=== PATIENT | female | born 1960 | race Caucasian/White ===

== ENCOUNTER 2016-02-22 09:18 | Inpatient (IN) | payer OTHER ==
--- NOTE | 2016-02-22 09:25 | ED ---
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 She did feel somewhat nauseated and sweaty and hot. EMS was called he did render treatment included oxygen and nitroglycerin 3 the pain currently is 0/10. Initial EKG done by EMS to show some evidence of hyperacute T waves on the first EKG these appear to be normalized on the repeat EKG. Given the patient is currently pain-free she denies any shortness of breath cough fevers chills also though she states over last several days she has had some intermittent episodes of chest discomfort which seemed to get better after belching. MD Complaint: chest pain - Related Data Home Medications Medication Instructions Recorded Confirmed No Known Home Medications [No 02/22/16 02/22/16 Known Home Medications] Allergies Allergy/AdvReac Type Severity Reaction Status Date / Time ampicillin Allergy Unknown Verified 02/22/16 09:48 Childhood Review of Systems ROS Statement: Those systems with pertinent positive or pertinent negative responses have been documented in the HPI. ROS Other: All systems not noted in ROS Statement are negative. EKG Findings - EKG Results: EKG: interpreted by MORTEZA, sinus rhythm (Sinus rhythm with rate of 53 VA interval 140 QRS duration 84 daily since QTC of 456/427 possible left atrial enlargement no acute ST-T wave changes seen at this time.) General Exam - General Exam Comments Initial Comments: This is a well-developed well-nourished awake alert oriented 3 female General appearance: alert, anxious Head exam: Present: atraumatic, normocephalic, normal inspection Eye exam: Present: normal appearance, PERRL, EOMI. Absent: scleral icterus, conjunctival injection, periorbital swelling ENT exam: Present: normal exam, mucous membranes moist Neck exam: Present: normal inspection. Absent: tenderness, meningismus, lymphadenopathy Respiratory exam: Present: normal lung sounds bilaterally. Absent: respiratory distress, wheezes, rales, rhonchi, stridor Cardiovascular Exam: Present: regular rate, normal rhythm, normal heart sounds. Absent: systolic murmur, diastolic murmur, rubs, gallop, clicks GI/Abdominal exam: Present: soft, normal bowel sounds. Absent: distended, tenderness, guarding, rebound, rigid Extremities exam: Present: normal inspection, full ROM, normal capillary refill. Absent: tenderness, pedal edema, joint swelling, calf tenderness Back exam: Present: normal inspection Neurological exam: Present: alert, oriented X3, CN II-XII intact Psychiatric exam: Present: normal affect, normal mood Skin exam: Present: warm, dry, intact, normal color. Absent: rash Course Vital Signs 02/22/16 09:22 Temperature 97.4 F L Pulse Rate 69 Respiratory 20 Rate Blood Pressure 132/80 O2 Sat by Pulse 99 Oximetry - Reevaluation(s) Reevaluation #1: 02/22/16 11:00 Reevaluation patient reveals no further chest pain Reevaluation #2: 02/22/16 11:00 Patient had elevation of her troponin repeat EKG was done which showed a normal sinus rhythm a rate of 58 VA interval 146 QRS duration 74 daily since QTC of 446 /437 possible left atrial enlargement no acute ST-T wave changes. Reevaluation #3: 02/22/16 11:03 Patient is elevated troponin was noted I did discuss the case with Dr. Leger. Patient currently is pain-free repeat EKG shows no acute changes the patient will be admitted and Dr. Leger will see her after admission. Chest Pain MDM - MDM I did a long discussion with the patient and her regarding the findings. Patient be admitted for evaluation of new onset chest pain with elevated troponin. She remains pain-free at this time. Critical Care Time Critical Care Time: Yes Critical Care Time: 39 minutes of critical care time which includes initial monitoring of the EMS run as well as discussion with paramedics. History physical and evaluation of labs and x-rays. Reevaluation the patient to responsive therapy and further changes. Discussion with the admitting physician and consult at. Documentation above and initial admission orders. Disposition Clinical Impression: Non-ST elevation myocardial infarction (NSTEMI), Unstable angina pectoris, Chest pain, Smoking Disposition: ADMITTED IP TO THIS HOSP Condition: Stable
[2016-02-22 09:44] LABS: Basophils % (A) 1 %; CH 31.1; CHCM 33.4; Eosinophils # (A) 0.1 k/uL (0-0.7); Eosinophils % (A) 2 %; HCT 39.7 % (34.0-46.0); HDW 2.27; HGB 13.4 gm/dL (11.4-16.0); Luc # (Auto) 0.16; Luc % (Auto) 3; Lymphocytes # (A) 1.6 k/uL (1.0-4.8); Lymphocytes % (A) 36 %; MCH 31.6 pg (25.0-35.0); MCHC 33.7 g/dL (31.0-37.0); MCV 93.7 fL (80.0-100.0); Mean Platelet Volume 7.2; Monocytes # (A) 0.2 k/uL (0-1.0); Monocytes % (A) 4 %; Neutrophils # (A) 2.5 k/uL (1.3-7.7); Neutrophils % (A) 55 %; RBC 4.24 m/uL (3.80-5.40); RDW 13.5 % (11.5-15.5); WBC 4.6 k/uL (3.8-10.6); WBC (Perox) 4.63
--- NOTE | 2016-02-22 09:46 | XR ---
EXAMINATION TYPE: XR chest 2V DATE OF EXAM: 02/22/2016 9:42 AM COMPARISON: 01/16/2012 HISTORY: Chest pain FINDINGS: The lungs are clear and there is no pneumothorax, pleural effusion, or focal pneumonia. Hyperinflat ion suggests COPD. Degenerative change of the spine. IMPRESSION: 1. No acute process.
[2016-02-22 09:54] LABS: ALT 24 U/L (9-52); AST 24 U/L (14-36); Alkaline Phosphatase 64 U/L (38-126); Amylase 88 U/L (30-110); Anion Gap 10 mmol/L; Blood Urea Nitrogen 10 mg/dL (7-17); Carbon Dioxide 27 mmol/L (22-30); Chloride 103 mmol/L (98-107); Glucose 120 mg/dL (74-99); Magnesium 1.7 mg/dL (1.6-2.3); Non-African American GFR(MDRD) >60 (>60 ml/min/1.73 sqM); Potassium 4.4 mmol/L (3.5-5.1); Sodium 140 mmol/L (137-145); Total Bilirubin 0.2 mg/dL (0.2-1.3); Total Protein 6.6 g/dL (6.3-8.2)
[2016-02-22 09:59] LABS: Partial Thromboplastin Time 22.1 sec (22.0-30.0)
[2016-02-22 10:15] LABS: Troponin I 0.155 ng/mL (0.000-0.034)
[2016-02-22] MEDS ORDERED: HEPARIN SODIUM,PORCINE 5,000 UNIT/ML 1 ML VIAL IV ONE (10:18)
[2016-02-22] MEDS: HEPARIN SODIUM,PORCINE/D5W PMX 25,000 UNIT in DEXTROSE/WATER 1 500ML.BAG IV SCH (10:44)
[2016-02-22] MEDS ORDERED: NITROGLYCERIN SL TABS 0.4 MG TAB SUBLINGUAL PRN ×3 (11:06→15:46)
[2016-02-22] MEDS ORDERED: NICOTINE 14MG/24HR PATCH TRANSDERM STA (11:08)
[2016-02-22] MEDS ORDERED: BIVALIRUDIN BOLUS 250 MG/50 ML IV ONE (13:21)
[2016-02-22] MEDS ORDERED: BIVALIRUDIN 250 MG VIAL IV ONE (13:21)
[2016-02-22] MEDS ORDERED: ALPRAZolam 0.5 MG TAB PO PRN (13:24)
[2016-02-22] MEDS ORDERED: ALPRAZolam 0.25 MG TAB PO PRN (13:24)
[2016-02-22] MEDS ORDERED: ATORVASTATIN 80 MG TAB PO STA (13:24)
[2016-02-22] MEDS ORDERED: SODIUM CHLORIDE 0.9% 1,000 ML in EMPTY BAG 1 BAG IV ONE (13:24)
[2016-02-22] MEDS ORDERED: ASPIRIN 325 MG TAB PO STA (13:24)
[2016-02-22] MEDS ORDERED: fentaNYL (PF) 50 MCG/ML 2 ML AMP ONE (14:46)
[2016-02-22] MEDS ORDERED: HEPARIN SODIUM 1,000 UNIT/ML VIAL ONE (14:46)
[2016-02-22] MEDS ORDERED: LIDOCAINE 2% INJ 20 MG/ML (20 ML MDV) ONE (14:46)
[2016-02-22] MEDS ORDERED: IV FLUID CONTINUATION 1,000 ML IV ONE (14:46)
[2016-02-22] MEDS ORDERED: SODIUM CHLORIDE 0.9% (PF) 10 ML VIAL ONE (14:47)
[2016-02-22] MEDS ORDERED: VERAPAMIL 2.5 MG/ML 2 ML AMP ONE (14:47)
[2016-02-22] MEDS ORDERED: fentaNYL (PF) 50 MCG/ML 2 ML AMP IV ONE (15:06)
[2016-02-22] MEDS ORDERED: LIDOCAINE 2% INJ 20 MG/ML SQ ONE (15:09)
[2016-02-22] MEDS ORDERED: VERAPAMIL SYRINGE (5 MG/10 ML) INTRAARTER ONE (15:10)
[2016-02-22] MEDS ORDERED: BIVALIRUDIN 250 MG in SODIUM CHLORIDE 0.9% 50 ML IV ONE (15:22)
[2016-02-22] MEDS ORDERED: CLOPIDOGREL 75 MG TAB ONE (15:24)
[2016-02-22] MEDS ORDERED: CLOPIDOGREL 75 MG TAB PO ONE (15:27)
[2016-02-22] MEDS ORDERED: IOHEXOL 350 MG/ML 100 ML BOTTLE INJ ONE (15:41)
[2016-02-22] MEDS ORDERED: MAG HYDROX/AL HYDROX/SIMETH 30 ML CUP PO PRN (15:46)
[2016-02-22] MEDS ORDERED: RX INFO: IV CONTRAST WAS GIVEN 1 EACH MISC MISCELLANE PRN (15:46)
[2016-02-22] MEDS ORDERED: ZOLPIDEM 5 MG TAB PO PRN (15:46)
[2016-02-22] MEDS ORDERED: SODIUM CHLORIDE 0.9% 1,000 ML IV SCH (16:00)
[2016-02-22] MEDS: SODIUM CHLORIDE 0.9% 1,000 ML IV SCH (16:34)
[2016-02-22] MEDS: NITROGLYCERIN OINT 1 INCH/GM PACKET TOPICAL SCH ×3 (16:34→22:42)
[2016-02-22 17:24] LABS: Creatine Kinase MB 4.2 ng/mL (0.0-2.4); Troponin I 1.38 ng/mL (0.000-0.034)
[2016-02-22] MEDS: ACETAMINOPHEN TAB 325 MG TAB PO PRN (19:48)
[2016-02-22] MEDS: METOPROLOL TARTRATE 25 MG TAB PO SCH (19:49)
[2016-02-22 20:16] LABS: Cholesterol 170 mg/dL (<200); HDL Cholesterol 73 mg/dL (40-60); Triglycerides 164 mg/dL (<150)
[2016-02-22 22:24] LABS: Creatine Kinase MB 2.8 ng/mL (0.0-2.4); Troponin I 0.816 ng/mL (0.000-0.034)
[2016-02-22] MEDS: ATORVASTATIN 80 MG TAB PO SCH (22:42)
--- NOTE | 2016-02-22 22:49 | CONS ---
DATE OF CONSULTATION: 02/22/2016 Mrs. Schwartz is a 55-year-old female who does not see a family physician on a regular basis, with no prior cardiac history, who today had significant chest discomfort at rest. Came into the emergency room. Her EKG by the EMS showed some ST elevation in the lateral precordial leads. By the time she came into the emergency room her repeat EKG revealed resolution of those changes. She is pain free at the time of my evaluation. The patient is quite active physically. Denies any prior cardiac history. Denies any history of exertional chest pain. She has no dizziness. No palpitations. She denies any PND, orthopnea, or peripheral edema. She has not had any cardiac work-up and has not seen a physician. She takes no medications at home. Coronary risk factors are remarkable for chronic tobacco use, about a pack a day. She is nondiabetic. No hypertension and no documented hyperlipidemia. REVIEW OF SYSTEMS: RESPIRATORY: She denies any wheezing. No cough. No history of obstructive lung disease. GI: SYSTEM: No recent GI bleeding. No peptic ulcer disease. SYSTEM: No dysuria or hematuria. NERVOUS SYSTEM: No stroke or seizure. PHYSICAL EXAMINATION: She is a 55-year-old female, alert, oriented, in no apparent distress. Blood pressure 126/70 with a heart in the 50s. HEAD: Normocephalic. EYES: Sclerae anicteric. NECK: Good upstroke. No bruit. No jugular venous distention. LUNGS: Clear to auscultation. HEART: Regular rate and rhythm. S1, S2, no S3, no rub. ABDOMEN: Soft, nontender, positive bowel sounds. No organomegaly. EXTREMITIES: No edema. Intact distal pulses. LABORATORY DATA: BUN and creatinine 10 and 0.8. Potassium 4.4, troponin of 0.155. Hemoglobin of 13.4. Her EKG done in the emergency room revealed sinus mechanism, normal axis and intervals with minor nonspecific ST-T wave changes. There is one EKG by the EMS that showed ST segment elevation in the lateral precordial leads. Her chest x-ray shows no infiltrate. IMPRESSION: 1. Evidence of acute coronary syndrome. Her EKG at this time is stable, but she troponin elevation. 2. Chronic tobacco use. RECOMMENDATIONS: I recommend proceeding with coronary angiography to assess her status and guide her treatment. The rationale behind the procedure as well as risks and complications were discussed with the patient and her , they are in full understanding and agreement. Depending on the results of testing, further recommendations will be made. Thank you for this consult. We will follow with you.
[2016-02-23 01:27] LABS: Appearance,Urine Clear (Clear); Bilirubin,Urine Negative (Negative); Glucose,Urine (UA) Negative (Negative); Ketones,Urine Negative (Negative); Leukocyte Esterase,Urine Negative (Negative); Nitrite,Urine Negative (Negative); Protein,Urine Negative (Negative); UA Billing (MACRO vs. MICRO) CHEM; Urobilinogen,Urine <2.0 mg/dL (<2.0)
[2016-02-23] MEDS: ACETAMINOPHEN TAB 325 MG TAB PO PRN ×3 (03:13→21:45)
[2016-02-23] MEDS: NITROGLYCERIN OINT 1 INCH/GM PACKET TOPICAL SCH ×2 (06:45→11:11)
[2016-02-23 07:48] LABS: Anion Gap 9 mmol/L; Blood Urea Nitrogen 5 mg/dL (7-17); Calcium 8.4 mg/dL (8.4-10.2); Carbon Dioxide 23 mmol/L (22-30); Chloride 110 mmol/L (98-107); Cholesterol 152 mg/dL (<200); Glucose 89 mg/dL (74-99); HDL Cholesterol 63 mg/dL (40-60); Non-African American GFR(MDRD) >60 (>60 ml/min/1.73 sqM); Potassium 4.3 mmol/L (3.5-5.1); Sodium 142 mmol/L (137-145); Triglycerides 131 mg/dL (<150)
[2016-02-23] MEDS ORDERED: ASPIRIN 325 MG TAB PO SCH ×2 (09:00)
[2016-02-23] MEDS: LISINOPRIL 5 MG TAB PO SCH (09:17)
[2016-02-23] MEDS: METOPROLOL TARTRATE 25 MG TAB PO SCH ×2 (09:17→21:28)
[2016-02-23 09:24] VITALS: RESP 18
[2016-02-23] MEDS: HEPARIN SODIUM,PORCINE/D5W PMX 25,000 UNIT in DEXTROSE/WATER 1 500ML.BAG IV SCH (09:59)
[2016-02-23] MEDS: SODIUM CHLORIDE 0.9% 1,000 ML IV SCH (10:11)
--- NOTE | 2016-02-23 10:27 | CC ---
DATE OF SERVICE: Mrs. Schwartz is a 55-year-old female with known history of chronic tobacco use. No prior history of coronary artery disease, who presented to the emergency room with symptoms of chest discomfort and in the EMS, she had a transient ST segment elevation in the anterolateral leads. In view of that, recommendation made regarding cardiac catheterization. The procedure as well as risks and complications were discussed with the patient, who is in full understanding and agreement. PROCEDURE: Patient was brought to the Product Inspection Coordinator in a fasting semi-sedated state after receiving fentanyl and Benadryl. She was draped and prepped in conventional fashion. Using Xylocaine anesthesia and Seldinger technique, a 6 Thai sheath was introduced in the right radial artery. Selective right and left coronary angiography were performed using 5 Thai 3-1/2 Bend right Mony catheter and multiple views of the coronary arteries coronary arteries including hemiaxial view were obtained. Following that, a 5 Thai tight pigtail catheter was introduced into the left ventricular and a 30 degree DINH view of the left ventricle was obtained. Following that, the catheter was removed. Images were reviewed. FINDINGS: LEFT MAIN: This is a large-size vessel bifurcating into left circumflex, left anterior descending artery. Left main coronary has no evidence of high-grade stenosis. LEFT ANTERIOR DESCENDING ARTERY: This is a large-size vessel reaching toward the apex with a wraparound apex segment, giving rise to a moderately-sized diagonal branch in the mid segment. The left anterior descending artery in the midsegment after the takeoff of the first septal clinical trial coordinator has an eccentric 80% hazy plaque. The rest of the vessel has no high-grade stenosis. LEFT CIRCUMFLEX: This is a nondominant vessel, giving rise to 2 obtuse marginal branches. The left circumflex as well as its branches has no evidence of obstructive coronary artery disease. RIGHT CORONARY ARTERY: This is a dominant, moderately-sized vessel, bifurcating distally into PDA ( ) segmented branches. The right coronary artery, as well as its branches have no evidence of obstructive coronary artery disease. LEFT VENTRICULOGRAM: Left ventriculogram was performed in 30 degree DINH view and revealed a anteroapical hypokinesis. Ejection fraction is 45%. There was no significant mitral regurgitation. HEMODYNAMICS: There was no gradient across the aortic valve. The left ventricular end-diastolic pressure was smoke. CONCLUSION: 1. Significant stenosis involving the mid left anterior descending artery. There appears to be a ruptured plaque. 2. Mildly impaired left ventricular systolic function. RECOMMENDATION: In view of the findings in the anatomy, I have recommended proceeding with angioplasty and stenting of the LAD. The procedure as well as risks and complications were discussed with the patient who is in full understanding and agreement.
--- NOTE | 2016-02-23 10:27 | ECHOF ---
Referral Reason:Chest pain with elevated troponin MEASUREMENTS -------- HEIGHT: 152.4 cm WEIGHT: 49.0 kg BP: 86/53 RVIDd: 2.4 cm (< 3.3) IVSd: 0.9 cm (0.6 - 1.1) LVIDd: 3.2 cm (3.9 - 5.3) LVPWd: 0.8 cm (0.6 - 1.1) IVSs: 1.3 cm LVIDs: 2.1 cm LVPWs: 1.4 cm LA Diam: 2.6 cm (2.7 - 3.8) Ao Diam: 2.4 cm (2.0 - 3.7) AV Cusp: 1.5 cm (1.5 - 2.6) LA Diam: 2.5 cm (2.7 - 3.8) MV EXCURSION: 10.434 mm (> 18.000) MV EF SLOPE: 51 mm/s (70 - 150) EPSS: 0.4 cm MV E Jh: 1.08 m/s MV DecT: 188 ms MV A Jh: 0.49 m/s MV E/A Ratio: 2.20 RAP: 5.00 mmHg RVSP: 26.09 mmHg FINDINGS -------- Sinus rhythm. This was a technically good study. Left ventricular wall thickness is normal. Overall left ventricular systolic function is normal with, an EF between 55 - 60 %. The right ventricle is normal in size. The left atrial size is normal. The right atrium is normal in size. Aortic valve is trileaflet and is mildly thickened. The mitral valve leaflets are mildly thickened. Mild mitral annular calcification present. Mild tricuspid regurgitation present. Right ventricular systolic pressure is normal at < 35 mmHg. Pulmonic valve appears structurally normal. The aortic root size is normal. Normal inferior vena cava with normal inspiratory collapse consistent with estimated right atrial pressure of 5 mmHg. The pericardium is normal. CONCLUSIONS -------- 1. Sinus rhythm. 2. Mild mitral annular calcification present. 3. Mild tricuspid regurgitation present. 4. Right ventricular systolic pressure is normal at < 35 mmHg. 5. Pulmonic valve appears structurally normal. 6. The aortic root size is normal. 7. The pericardium is normal. 8. This was a technically good study. 9. Left ventricular wall thickness is normal. 10. Overall left ventricular systolic function is normal with, an EF between 55 - 60 %. 11. The right ventricle is normal in size. 12. The left atrial size is normal. 13. The right atrium is normal in size. 14. Aortic valve is trileaflet and is mildly thickened. 15. The mitral valve leaflets are mildly thickened. GLUE MOUNTER OPERATOR: Montse Vital RDCS
--- NOTE | 2016-02-23 10:36 | PTCA ---
DATE OF SERVICE: Mrs. Schwartz is a 55-year-old female who presented with evidence of acute coronary syndrome, underwent cardiac catheterization, was found to have critical stenosis involving the mid LAD. In view of that, recommendation was made regarding angioplasty and stenting. The procedure as well as the risks and complications were discussed with the patient who is in full understanding and agreement. PROCEDURE: Using a 6 Chinese 3-1/2 Bend left guiding catheter, images of the left coronary artery were performed. Following that 0.014 balanced medium weight J-wire was advanced across the lesion, positioned distally then a 2.5 x 15 mm Xience Alpine stent was deployed, postdilated at 14 atmospheres. After the last inflation, after appropriate wait, the balloon and the guidewire withdrawn back in the guiding catheter. Images were obtained and repeated. Those images reveal stable successful stenting. At that point, the guiding catheter, the balloon and the guidewire were removed. The sheath was removed. Hemostasis was obtained with deployment of a TR band. There were no immediate complications. Patient is returned to her room in stable condition. Of note, the patient had received Angiomax per protocol as well as oral loading dose of clopidogrel. She has no chest discomfort or significant EKG changes with the inflation. RESULT: Successful stenting of the mid left anterior descending with reduction in stenosis from 80% to 0%. RECOMMENDATION: Patient will be continued on aspirin, Plavix, beta farideh, RUSTY inhibitor and statin. The importance of dual antiplatelet treatment were discussed with the patient and her family and they are in full understanding and agreement.
--- NOTE | 2016-02-23 11:04 | HP ---
DATE OF ADMISSION: 02/22/2016 CHIEF COMPLAINT: Chest pain. HISTORY OF PRESENT ILLNESS: This 55-year-old woman with a past history of multiple medical problems including anxiety, depression, history of nicotine dependence, history of THC, not being followed by any primary care physician in the outpatient setting, was complaining of chest pain. 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 The patient had sudden onset of severe crushing pain which was 20 out of 10 in intensity. The patient was nauseated and felt sweaty and hot. The patient took some . The EMS was called. EMS gave oxygen and nitroglycerin. The pain improved. Some T-wave inversions noted in the EKG. Patient admitted for further evaluation and treatment. Troponins elevated to 1.38 indicating acute non-ST segment elevation myocardial infarction. Cardiology performed cardiac catheterization and as well as stenting of the LAD and the patient being closely monitored. There is no history of fever, rigors or chills. No history of headache, loss of consciousness or seizures. The patient was also complaining of severe abdominal pain which did improve with passage of gas. Past medical history of anxiety, depression. History of nicotine dependence. section. Medications prior to admission include: None. ALLERGIES: AMPICILLIN. FAMILY HISTORY: History of CVA, TIA, cardiac disease in the family. SOCIAL HISTORY: Continues to smoke on a daily basis. No history of alcohol intake. REVIEW OF SYSTEMS: ENT: No diminished hearing. No diminished vision. CARDIOVASCULAR: As mentioned earlier. RESPIRATORY: As mentioned earlier. GI: No nausea. : No dysuria. Nervous system: No numbness, weakness. Allergy/immunology: No asthma or hayfever. MUSCULOSKELETAL: As mentioned earlier. HEMATOLOGY/ONCOLOGY: No history of anemia. ENDOCRINE: No history of diabetes, or hypothyroidism. CONSTITUTIONAL: As mentioned earlier. DERMATOLOGY: Negative. RHEUMATOLOGY: Negative. PSYCHIATRY: As mentioned earlier. PHYSICAL EXAMINATION: The patient is alert and oriented times three. Pulse 56, blood pressure 111/51, respiratory rate 16, temperature normal. Pulse ox 98% on room air. HEENT: Conjunctivae normal. NECK: No jugular venous distention. CARDIOVASCULAR: S1, S2 muffled. RESPIRATORY: Breath sounds diminished in the bases. A few scattered rhonchi and no crackles. ABDOMEN: Soft, nontender. No mass palpable. LEGS: No edema. No swelling. CENTRAL NERVOUS SYSTEM: Higher functions as mentioned earlier. Moves all four limbs. No focal motor or sensory deficits. LYMPHATICS: No lymph nodes palpable in the neck, axillae or groin. SKIN: No ulcer, rash or bleeding. LABS: CBC within normal limits. Troponin 0.115 and 1.380. ASSESSMENT: 1. Acute non- ST segment elevation segment elevation myocardial infarction with chest pain, status post cardiac catheterization and left anterior descending coronary artery stenting. 2. History of possible irritable bowel syndrome. 3. Increased triglycerides. 4. Increased random blood sugar. 5. History of nicotine dependence. 6. History of THC. 7. Anxiety and depression. RECOMMENDATIONS AND DISCUSSION: In this 55-year-old woman who presented with multiple complex medical issues, we will monitor the patient closely, continue the current medications, continue symptomatic treatment. Otherwise, at this time, I recommend to continue with antiplatelet agents and beta blockers and check the serum lipids. Guarded prognosis because of multiple complex medical problems. Also recommend the patient to follow up with primary physician closely in the outpatient setting. Further recommendations to follow. The patient understands and agrees. RUTH
[2016-02-23] MEDS: CLOPIDOGREL 75 MG TAB PO SCH (15:11)
--- NOTE | 2016-02-23 15:28 | P.PN ---
Subjective Principal diagnosis: Non-Q wave IA This is a 55-year-old female who presented to the hospital with a non-Q-wave myocardial infarction. She underwent went to cardiac catheterization with stent placement of the left anterior descending artery. She was seen and examined this morning, she's been up ambulating without any difficulty. Denies any further chest pain, breathing has been stable. Echocardiogram with Doppler study was performed which revealed an ejection fraction of 55-60%. She is currently on aspirin daily, Lipitor 80 mg daily, Plavix 75 mg daily, lisinopril 5 mg daily, metoprolol tartrate 25 mg one tablet by mouth twice a day, nicotine patch, and sublingual nitroglycerin. She's been instructed to be up ambulating today and we'll plan for discharge home in the morning if stable. Objective - Vital Signs Vital signs: Vital Signs Temp 97.1 F L 02/23/16 15:16 Pulse 55 L 02/23/16 15:16 Resp 18 02/23/16 15:16 BP 133/76 02/23/16 15:16 Pulse Ox 98 02/23/16 15:16 Intake & Output 02/22/16 02/23/16 02/23/16 18:59 06:59 18:59 Intake Total 306.7 800 300 Output Total 529 430 2431 Balance -293.3 -50 -700 Weight 49.4 kg Intake: IV 84.7 500 Sodium Chloride 0.9% 1, 500 000 ml @ 100 mls/hr IV . Q10H ROSS Rx#:[id number] Oral 222 300 300 Output: Urine 463 994 1125 Other: Voiding Method Bedpan Toilet Toilet # Voids 1 - Exam PHYSICAL EXAMINATION: HEENT: Head is atraumatic, normocephalic. Pupils equal, round. Neck is supple. There is no elevated jugular venous pressure. HEART EXAMINATION: Heart S1, S2 normal. No murmur or gallop heard. CHEST EXAMINATION: Lungs are clear to auscultation and precussion. No chest wall tenderness is noted on palpation or with deep breathing. ABDOMEN: Soft, nontender. Bowel sounds are heard. No organomegaly noted. EXTREMITIES: 2+ peripheral pulses with no evidence of peripheral edema and no calf tenderness noted. Right radial site clean and dry, good distal pulse. NEUROLOGIC patient is awake, alert and oriented -3. . - Labs CBC & Chem 7: 02/22/16 09:30 02/23/16 06:15 Labs: Abnormal Lab Results - Last 24 Hours (Table) 02/22/16 02/22/16 02/23/16 Range/Units 16:10 21:20 01:15 Chloride (98-107) mmol/L BUN (7-17) mg/dL Total Creatine Kinase 148 H (30-135) U/L CK-MB (CK-2) 4.2 H* 2.8 H* (0.0-2.4) ng/mL Troponin I 1.380 H* 0.816 H* (0.000-0.034) ng/mL HDL Cholesterol (40-60) mg/dL U Marijuana (THC) Screen Detected H (NotDetected) 02/23/16 Range/Units 06:15 Chloride 110 H (98-107) mmol/L BUN 5 L (7-17) mg/dL Total Creatine Kinase (30-135) U/L CK-MB (CK-2) (0.0-2.4) ng/mL Troponin I (0.000-0.034) ng/mL HDL Cholesterol 63 H (40-60) mg/dL U Marijuana (THC) Screen (NotDetected) Assessment and Plan (1) Presence of stent in LAD coronary artery Status: Acute (2) Non-ST elevation myocardial infarction (NSTEMI) Status: Acute (3) Smoking Status: Acute Plan: From cardiology's perspective, patient has been instructed to be up ambulating in the hallway today. We'll plan for possible discharge home in 24 hours if stable DNP note has been reviewed, I agree with a documented findings and plan of care. Patient was seen and examined.
[2016-02-23] MEDS: NICOTINE 21MG/24HR PATCH TRANSDERM SCH (18:42)
[2016-02-23] MEDS: ATORVASTATIN 80 MG TAB PO SCH (21:28)
--- NOTE | 2016-02-23 21:44 | PN ---
DATE OF SERVICE: 02/23/2016 This 55-year-old woman who was admitted with acute aya-FC-bqveuui-elevation myocardial infarction had cardiac catheterization and stenting of the LAD. No chest pain. No palpitation. No fever. Cardiology is following the patient closely. On exam, alert and oriented x3. Pulse 55, blood pressure 120/76, respiration 18, temperature 97.4, pulse ox 98% on room air. HEENT: Conjunctivae normal. NECK: No jugular venous distention. CARDIOVASCULAR SYSTEM: S1, S2 muffled. RESPIRATORY SYSTEM: Breath sounds diminished at the bases. No rhonchi. No crackles. ABDOMEN: Soft, non-tender. LEGS: No edema. No swelling. NERVOUS SYSTEM: No focal deficit. LABS: Sodium 142, potassium 4.3. UA normal. THC positive. HDL is 63. ASSESSMENT: 1. Acute qpi-OF-bhyknnb-elevation myocardial infarction with chest pain, status post cardiac catheterization and left anterior descending coronary artery stenting. 2. History of possible irritable bowel syndrome. 3. Increased triglycerides. 4. Increased random blood sugar. 5. History of nicotine dependence. 6. History of tetrahydrocannabinol. 7. Anxiety, depression not otherwise specified. RECOMMENDATIONS AND DISCUSSION: In this 55-year-old woman who presented with multiple complex medical issues, we will monitor the patient closely, continue the current medication, continue with the beta blockers, continue with the antiplatelet agents. Prognosis guarded because of multiple complex medical issues. Further recommendations to follow.
--- NOTE | 2016-02-24 08:20 | P.PN ---
Subjective Principal diagnosis: Non-Q wave HI This is a 55-year-old female who presented to the hospital with a non-Q-wave myocardial infarction. She underwent went to cardiac catheterization with stent placement of the left anterior descending artery. She was seen and examined this morning, she's been up ambulating without any difficulty. Denies any further chest pain, breathing has been stable. Echocardiogram with Doppler study was performed which revealed an ejection fraction of 55-60%. She is currently on aspirin daily, Lipitor 80 mg daily, Plavix 75 mg daily, lisinopril 5 mg daily, metoprolol tartrate 25 mg one tablet by mouth twice a day, nicotine patch, and sublingual nitroglycerin. Patient's heart rate has been consistently in the low 50s, through the night down into the 40s. We will decrease the dose of metoprolol tartrate 12.5 mg one tablet by mouth twice a day. She may be able to be discharged home today from cardiology's perspective , a follow-up appointment will be made in the office post discharge. Prescriptions have been provided for her medications. Objective - Vital Signs Vital signs: Vital Signs Temp 97.6 F 02/23/16 20:00 Pulse 45 L 02/24/16 04:00 Resp 18 02/24/16 04:00 BP 107/55 02/24/16 04:00 Pulse Ox 99 02/24/16 04:00 Intake & Output 02/23/16 02/24/16 02/24/16 18:59 06:59 18:59 Intake Total 840 1200 Output Total 1000 1300 Balance -160 -100 Weight 49.1 kg Intake: Oral 840 1200 Output: Urine 1000 1300 Other: Voiding Method Toilet # Voids 1 1 - Exam PHYSICAL EXAMINATION: HEENT: Head is atraumatic, normocephalic. Pupils equal, round. Neck is supple. There is no elevated jugular venous pressure. HEART EXAMINATION: Heart S1, S2 normal. No murmur or gallop heard. CHEST EXAMINATION: Lungs are clear to auscultation and precussion. No chest wall tenderness is noted on palpation or with deep breathing. ABDOMEN: Soft, nontender. Bowel sounds are heard. No organomegaly noted. EXTREMITIES: 2+ peripheral pulses with no evidence of peripheral edema and no calf tenderness noted. Right radial site clean and dry, good distal pulse. NEUROLOGIC patient is awake, alert and oriented -3. . - Labs CBC & Chem 7: 02/22/16 09:30 02/23/16 06:15 Assessment and Plan (1) Presence of stent in LAD coronary artery Status: Acute (2) Non-ST elevation myocardial infarction (NSTEMI) Status: Acute (3) Smoking Status: Acute Plan: From cardiology's perspective, we will decrease increase the dose of metoprolol tartrate 12-1/2 mg one tablet by mouth twice a day. Patient may be able to be discharged home today area a follow-up appointment will be made with Dr. Leger in the office in one week. Patient will be discharged home on aspirin 81 mg daily, Lipitor 80 mg daily, Plavix 75 mg daily, metoprolol tartrate 12-1/2 mg one tablet by mouth twice a day, nicotine patch daily, sublingual nitroglycerin as needed for chest pain. DNP note has been reviewed, I agree with a documented findings and plan of care. Patient was seen and examined.
[2016-02-24 08:35] VITALS: TEMP 97.5
[2016-02-24] MEDS ORDERED: METOPROLOL TARTRATE 12.5 MG TAB PO SCH (09:00)
[2016-02-24] MEDS ORDERED: ASPIRIN 81 MG CHEW PO SCH (09:00)
[2016-02-24] MEDS: CLOPIDOGREL 75 MG TAB PO SCH (09:01)
[2016-02-24] MEDS: LISINOPRIL 5 MG TAB PO SCH (09:01)
[2016-02-24] MEDS: NICOTINE 21MG/24HR PATCH TRANSDERM SCH (09:01)
[2016-02-24] MEDS: HEPARIN SODIUM,PORCINE/D5W PMX 25,000 UNIT in DEXTROSE/WATER 1 500ML.BAG IV SCH (09:22)
[2016-02-24] MEDS: SODIUM CHLORIDE 0.9% 1,000 ML IV SCH (10:33)
[2016-02-24 12:19] VITALS: BP 121/75; PULSE 50
--- NOTE | 2016-02-25 23:05 | DS ---
DATE OF ADMISSION: 02/22/2016 DATE OF DISCHARGE: 02/24/2016 FINAL DIAGNOSES: 1. Acute bds-[id number]-elevation myocardial infarction with chest pain, status post cardiac catheterization and left anterior descending coronary artery stenting. 2. History of possible irritable bowel syndrome. 3. History of increased triglycerides. 4. Increased random blood. 5. History of nicotine dependence. 6. History of tetrahydrocannabinol. 7. Anxiety and depression not otherwise specified. DISCHARGE DISPOSITION: The patient will be discharged in stable condition with a guarded prognosis. HISTORY OF PRESENT ILLNESS: This 55-year-old woman with a past medical history of multiple medical problems was admitted with acute nne-FF-qyjajce-elevation myocardial infarction. The patient underwent cardiac catheterization and LAD stenting by Cardiology. The patient improved significantly. On exam, vitals are stable. CARDIOVASCULAR SYSTEM: S1, S2 muffled. RESPIRATORY SYSTEM: Breath sounds diminished at the bases. ABDOMEN: Soft, non-tender. NERVOUS SYSTEM: No focal deficit. DISCHARGE ADVICE AND MEDICATIONS: 1. Diet is cardiac. 2. Activity limited until followup. 3. Follow up with Dr. Loco in 2 to 3 days. 4. Follow up with Dr. Leger as advised. 5. Aspirin 81 mg p.o. daily. 6. Lipitor 80 mg at bedtime. 7. Plavix 75 mg p.o. daily. 8. Zestril 5 mg p.o. daily. 9. Lopressor 12.5 mg b.i.d. 10. Habitrol 21 daily. 11. Nitro 0.4 subcutaneously p.r.n. Once again, the patient will be discharged in stable condition with guarded prognosis.
== END 2016-02-24 13:21 | disposition home or self-care (01) | DRG 247 ==
LOC: EC 09:18 → 6SEL 11:06
PROVIDERS: ADMIT Hospitalist; ATTEND Hospitalist
PROC: B2151ZZ Fluoroscopy of Left Heart using Low Osmolar Contrast (ICD-10-PCS; principal; 2016-02-22 14:45)
PROC: B2111ZZ Fluoroscopy of Multiple Coronary Arteries using Low Osmolar Contrast (ICD-10-PCS; principal; 2016-02-22 14:45)
PROC: 4A023N7 Measurement of Cardiac Sampling and Pressure, Left Heart, Percutaneous Approach (ICD-10-PCS; principal; 2016-02-22 14:45)
PROC: 027034Z Dilation of Coronary Artery, One Artery with Drug-eluting Intraluminal Device, Percutaneous Approach (ICD-10-PCS; principal; 2016-02-22 14:45)
DX: I21.4 Non-ST elevation (NSTEMI) myocardial infarction (principal); F32.9 Major depressive disorder, single episode, unspecified; E78.1 Pure hyperglyceridemia; F17.200 Nicotine dependence, unspecified, uncomplicated; F41.9 Anxiety disorder, unspecified; I25.110 Atherosclerotic heart disease of native coronary artery with unstable angina pectoris; Z88.1 Allergy status to other antibiotic agents
CPT/HCPCS: 36415; 71020; 80048; 80053; 80061; 80306; 81003; 82150; 82550; 82553; 83690; 83735; 83880; 84484; 85025; 85347; 85379; 85610; 85730; 93005; 93306; 93458; 96365; 96366; 96375; 96376; 99291

== ENCOUNTER → 2016-06-02 | Outpatient (CLI) | payer OTHER ==
[2016-06-02 15:50] LABS: ALT 54 U/L (9-52); AST 48 U/L (14-36); Alkaline Phosphatase 72 U/L (38-126); Anion Gap 9 mmol/L; Blood Urea Nitrogen 8 mg/dL (7-17); Calcium 9.6 mg/dL (8.4-10.2); Carbon Dioxide 25 mmol/L (22-30); Chloride 98 mmol/L (98-107); Cholesterol 112 mg/dL (<200); Glucose 89 mg/dL (74-99); HDL Cholesterol 82 mg/dL (40-60); Non-African American GFR(MDRD) >60 (>60 ml/min/1.73 sqM); Potassium 4.6 mmol/L (3.5-5.1); Sodium 132 mmol/L (137-145); Total Bilirubin 0.8 mg/dL (0.2-1.3); Total Protein 7.8 g/dL (6.3-8.2); Triglycerides 69 mg/dL (<150)
== END | disposition home or self-care (01) ==
LOC: LABWHC1 15:02
PROVIDERS: ATTEND Internal Medicine Interventional Cardiology
DX: E78.2 Mixed hyperlipidemia (principal)
CPT/HCPCS: 36415; 80053; 80061

== ENCOUNTER → 2016-07-19 | Outpatient (CLI) | payer OTHER ==
[2016-07-19 10:40] LABS: CH 31.3; CHCM 32.8; HCT 44.6 % (34.0-46.0); HDW 2.18; HGB 14.4 gm/dL (11.4-16.0); MCH 30.9 pg (25.0-35.0); MCHC 32.3 g/dL (31.0-37.0); MCV 95.7 fL (80.0-100.0); Mean Platelet Volume 7.1; RBC 4.66 m/uL (3.80-5.40); WBC 4.6 k/uL (3.8-10.6)
[2016-07-19 10:43] LABS: Anion Gap 8 mmol/L; Blood Urea Nitrogen 9 mg/dL (7-17); Carbon Dioxide 27 mmol/L (22-30); Chloride 102 mmol/L (98-107); Non-African American GFR(MDRD) >60 (>60 ml/min/1.73 sqM); Potassium 4.6 mmol/L (3.5-5.1); Sodium 137 mmol/L (137-145)
== END ==
LOC: LABPAT 10:00
PROVIDERS: ATTEND Internal Medicine Interventional Cardiology
DX: Z01.812 Encounter for preprocedural laboratory examination (principal); I25.10 Atherosclerotic heart disease of native coronary artery without angina pectoris
CPT/HCPCS: 80051; 82565; 84520; 85027

== ENCOUNTER 2016-07-22 06:29 | Day surgery (SDC) | payer OTHER ==
[2016-07-20 09:50] VITALS: BMI 21.2
[~2016-07-22 06:29] MED LIST: ALPRAZolam 0.25 MG TAB PO PRN; ALPRAZolam 0.5 MG TAB PO PRN; ASPIRIN 325 MG TAB PO STA; ATORVASTATIN 80 MG TAB PO STA; NITROGLYCERIN SL TABS 0.4 MG TAB SUBLINGUAL PRN; SODIUM CHLORIDE 0.9% 1,000 ML in EMPTY BAG 1 BAG IV ONE
[2016-07-22] MEDS ORDERED: SODIUM CHLORIDE 0.9% 1,000 ML IV ONE (06:58)
[2016-07-22 07:12] VITALS: RESP 16
[2016-07-22] MEDS ORDERED: fentaNYL (PF) 50 MCG/ML 2 ML AMP IV ONE (07:39)
[2016-07-22] MEDS ORDERED: diphenhydrAMINE 50 MG/ML 1 ML VIAL IVP ONE (07:39)
[2016-07-22] MEDS ORDERED: LIDOCAINE 2% INJ 20 MG/ML SQ ONE (07:44)
[2016-07-22] MEDS ORDERED: VERAPAMIL SYRINGE (5 MG/10 ML) INTRAARTER ONE (07:46)
[2016-07-22] MEDS ORDERED: HEPARIN SODIUM 1,000 UNIT/ML VIAL IV ONE (08:00)
[2016-07-22] MEDS ORDERED: IOHEXOL 350 MG/ML 100 ML BOTTLE INJ ONE (08:07)
[2016-07-22] MEDS ORDERED: RX INFO: IV CONTRAST WAS GIVEN 1 EACH MISC MISCELLANE PRN (08:13)
[2016-07-22] MEDS ORDERED: NITROGLYCERIN SL TABS 0.4 MG TAB SUBLINGUAL PRN (08:14)
[2016-07-22] MEDS ORDERED: SODIUM CHLORIDE 0.9% 1,000 ML IV SCH (08:15)
[2016-07-22 08:20] VITALS: TEMP 98.2
[2016-07-22] MEDS ORDERED: METOPROLOL TARTRATE 12.5 MG TAB PO SCH (09:00)
[2016-07-22] MEDS ORDERED: LISINOPRIL 5 MG TAB PO SCH (09:00)
[2016-07-22] MEDS ORDERED: ASPIRIN 81 MG CHEW PO SCH (09:00)
[2016-07-22] MEDS ORDERED: CLOPIDOGREL 75 MG TAB PO SCH (09:00)
--- NOTE | 2016-07-22 10:18 | CC ---
DATE OF SERVICE: Mrs. Schwartz is a 55-year-old female with known history of hyperlipidemia, history of chronic tobacco use who has underwent stenting of her mid LAD in February of this year. Recently she has been complaining of episode of chest discomfort as well as progressive dyspnea reminding her of the symptoms she had prior to the stenting. In view of that, recommendation was made regarding cardiac catheterization. The procedure as well as the risks and complications were discussed with the patient who is in full understanding and agreement. PROCEDURE: Patient was brought to the laboratory inspector in fasting semi-sedated state after receiving fentanyl and Benadryl and after achieving moderate conscious sedated state. Using Xylocaine anesthesia and Seldinger technique, a 6 Cambodian sheath was introduced in the left radial artery. Selective right and left coronary angiography was performed using 5 Cambodian 4 bend right and left Mony catheter. Multiple views of the coronary arteries including hemiaxial views were obtained. Following that, a 5 Cambodian tight pigtail catheter was introduced into the left ventricle and a 30-degree DINH view of the left ventricle was obtained. Following that, catheter and sheaths were removed. Hemostasis was obtained with deployment of pressure band. There was no immediate complication. Patient was returned to her room in stable condition. Of note, the patient received 2500 units of intravenous heparin as well as intra-arterial verapamil. FINDINGS: LEFT MAIN: This is a short-sized vessel bifurcating into the left circumflex and left anterior descending artery. Left main coronary artery is without any significant obstructive coronary artery disease. LEFT ANTERIOR DESCENDING ARTERY: This is a large-size vessel reaching toward the apex with a wrap around apex segment. The mid-LAD in the stented area is patent with no significant restenosis. There is a 10% to 20% plaque. The rest of the vessel has no high-grade stenosis. LEFT CIRCUMFLEX: This is a nondominant vessel, large in caliber giving rise to two obtuse marginal branches. The left circumflex and its branches have no evidence of obstructive coronary artery disease. RIGHT CORONARY ARTERY: This is a dominant vessel, moderate in caliber, bifurcating distally into PDA and posterolateral segment and branches. The right coronary artery and its branches have no evidence of obstructive coronary artery disease. LEFT VENTRICULOGRAM: Left ventriculogram was performed in 30-degree DINH view and revealed normal left ventricular size and systolic function. Ejection fraction 60%. There was no significant mitral regurgitation. HEMODYNAMICS: There was no gradient across the aortic valve. The left ventricular end-diastolic was 14 to 16 mmHg. The duration of the procedure was 23 minutes. CONCLUSION: 1. Mild intimal disease in the mid left anterior descending with no evidence of significant restenosis. 2. Normal left ventricular size and systolic function. RECOMMENDATIONS: In view of findings and anatomy, I recommend to continue with medical therapy with aggressive coronary risk modification has been initiated. Those findings and recommendations were discussed with the patient and her family who are in full understanding and agreement.
--- NOTE | 2016-07-22 10:22 | LTR ---
July 22, 2016 JACKI SALAZAR DO RE: EfrenDaniela Dear Dr. Salazar: I had the opportunity to perform cardiac catheterization on Mrs. Schwartz at [facility] on the 22 of July. A full copy of the procedure note will be forwarded to you. In brief, she was found to have no evidence of restenosis in the mid LAD and based on those findings, I recommend to continue medical therapy and I have encouraged her to stop smoking. Depending on her progress, further recommendation will be made. Thank you again for allowing me the opportunity to participate in her care. Please fee free to call for any questions. Sincerely yours, LUCÍA HORNER MD
[2016-07-22 13:08] VITALS: BP 100/57; PULSE 67
[2016-07-22] MEDS ORDERED: ATORVASTATIN 80 MG TAB PO SCH (21:00)
== END 2016-07-22 13:22 | disposition home or self-care (01) ==
LOC: CATHCVL 06:29
PROVIDERS: ATTEND Internal Medicine Interventional Cardiology
DX: I25.110 Atherosclerotic heart disease of native coronary artery with unstable angina pectoris (principal); Z95.5 Presence of coronary angioplasty implant and graft; E78.2 Mixed hyperlipidemia; E78.00 Pure hypercholesterolemia, unspecified; F17.210 Nicotine dependence, cigarettes, uncomplicated; Z79.02 Long term (current) use of antithrombotics/antiplatelets; Z79.82 Long term (current) use of aspirin; Z79.899 Other long term (current) drug therapy; Z88.1 Allergy status to other antibiotic agents
CPT/HCPCS: 93458; 99152; 99153; C1769 ×2; C1894; J2001; J1200; Q9967; J3010; J1644

== ENCOUNTER 2016-07-23 13:57 | Emergency (ER) | payer OTHER ==
[2016-07-23 14:03] VITALS: BP 131/68; PULSE 65; RESP 20; TEMP 98.4
--- NOTE | 2016-07-23 14:33 | ED ---
General Adult HPI - General Chief complaint: Recheck/Abnormal Lab/Rx Stated complaint: Swollen Left Hand Time Seen by Provider: 07/23/16 14:16 Source: patient, family, RN notes reviewed, old records reviewed Mode of arrival: ambulatory Limitations: no limitations - History of Present Illness Initial comments: If complaint and history of present illness this is a 55-year-old female here with his significant other. The patient had left heart catheterization using the left radial artery yesterday. Patient presents today with mild bruising in the same area. And some discomfort when she opens and closes her left hand. Full range of motion of. Neurovascular status to the fingers intact with a normal Carrillo test bilaterally. - Related Data Home Medications Medication Instructions Recorded Confirmed Atorvastatin [Lipitor] 40 mg PO HS 06/13/16 07/22/16 Previous Rx's Medication Instructions Recorded Aspirin 81 mg PO DAILY #30 chew 02/24/16 Clopidogrel [Plavix] 75 mg PO DAILY #30 tab 02/24/16 Lisinopril [Zestril] 5 mg PO DAILY #30 tab 02/24/16 Metoprolol Tartrate [Lopressor] 12.5 mg PO BID #60 tab 02/24/16 Nitroglycerin Sl Tabs [Nitrostat] 0.4 mg SUBLINGUAL Q5M PRN #25 tab 02/24/16 Allergies Allergy/AdvReac Type Severity Reaction Status Date / Time ampicillin Allergy Unknown Verified 07/23/16 14:02 Childhood Review of Systems ROS Statement: Those systems with pertinent positive or pertinent negative responses have been documented in the HPI. Review of systems; patient denies any visual acuity no chest pain no shortness of breath no headache no GI/ problems no neuro deficits. All systems reviewed. Past medical problems significant for coronary disease and heart attack on the second of this year. Also hyperlipidemia. Patient's surgeries include cyst removal 2 C-sections heart catheterization. The patient family history significant for a sister had ovarian cancer. Patient has ALLERGIES to ampicillin. She does smoke strongly encouraged stop denies alcohol use ROS Other: All systems not noted in ROS Statement are negative. Past Medical History Past Medical History: Coronary Artery Disease (CAD), Chest Pain / Angina, Hyperlipidemia, Myocardial Infarction ([place]) Last Myocardial Infarction Date:: february 2016 History of Any Multi-Drug Resistant Organisms: None Reported Past Surgical History: Heart Catheterization With Stent Additional Past Surgical History / Comment(s): cyst removal Past Anesthesia/Blood Transfusion Reactions: No Reported Reaction Date of Last Stent Placement:: 02/22/2016 Past Psychological History: No Psychological Hx Reported Smoking Status: Current every day smoker Past Alcohol Use History: None Reported Past Drug Use History: None Reported - Past Family History Father Additional Family Medical History / Comment(s): DAD AT AGE 78, PATIENT WAS VERY YOUNG AT THAT TIME. HISTORY UNKNOWN. Mother Family Medical History: CVA/TIA, Myocardial Infarction ([place]) General Exam - General Exam Comments Initial Comments: General: The patient is awake and alert, in no distress, and does not appear acutely ill. Vital signs are stable temperature 98.4 pulse 65 respiratory rate 20 pulse ox 98% room air blood pressure 131/68 Eye: Pupils are equal, round and reactive to light, extra-ocular movements are intact ; there is normal conjunctiva bilaterally. No signs of icterus. Ears, nose, mouth and throat: There are moist mucous membranes and no oral lesions. Neck: The neck is supple, there is no tenderness , no anterior cervical lymphadenopathy, thyroid not enlarged. Cardiovascular: There is a regular rate and rhythm. No murmur, rub or gallop is appreciated. Respiratory: Lungs are clear to auscultation, respirations are non-labored, breath sounds are equal. No wheezes, stridor, rales, or rhonchi. Gastrointestinal: No complaint of nausea vomiting diarrhea or abdominal pain. Musculoskeletal: All extremities normal. The patient had a left heart catheterization through the left radial artery. Small amount of bruising in the area. The patient demonstrates full range of motion of fingers and wrist. No evidence of any aneurysmal dilatation , normal Carrillo test bilaterally. Neurological: No complaint of or evidence of neuro deficits. Skin mild bruising at the site of the cardiac cath left wrist. No signs of infection. Limitations: no limitations Course Vital Signs 07/23/16 14:01 Temperature 98.4 F Pulse Rate 65 Respiratory 20 Rate Blood Pressure 131/68 O2 Sat by Pulse 98 Oximetry Medical Decision Making - Medical Decision Making Medical decision-making. The patient was advised to gently flex and extend at the wrist open close her hand. Use a cold pack on and off to the area to help minimize bruising. She does request a sling for comfort. Patient advised return emergency room or see her family doctor this is a significant swelling, signs of infection. Disposition Clinical Impression: Encounter for wound re-check Disposition: HOME SELF-CARE Condition: Good Instructions: Acute Wound Care (ED) Additional Instructions: Use a cool compress over the area. Flex and extend the fingers and wrist to maintain mobility. Report any signs of infection T her family doctor. Report severe pain or Referrals: Uyen Espinosa DO [Primary Care Provider] - 1-2 days Time of Disposition: 14:37
== END 2016-07-23 14:45 | disposition home or self-care (01) ==
LOC: EC 13:57
DX: T82.898A Other specified complication of vascular prosthetic devices, implants and grafts, initial encounter (principal); E78.5 Hyperlipidemia, unspecified; F17.200 Nicotine dependence, unspecified, uncomplicated; Z79.899 Other long term (current) drug therapy
CPT/HCPCS: 99283

== ENCOUNTER 2018-05-29 20:29 | Observation (INO) | payer OTHER ==
[2018-05-29] MEDS ORDERED: NITROGLYCERIN SL TABS 0.4 MG TAB SUBLINGUAL STA (21:04)
[2018-05-29] MEDS ORDERED: ASPIRIN 81 MG PO STA (21:05)
--- NOTE | 2018-05-29 21:07 | ED ---
General Adult HPI - General Chief complaint: Chest Pain Stated complaint: Chest pain Time Seen by Provider: 05/29/18 20:40 Source: patient Mode of arrival: ambulatory Limitations: no limitations - History of Present Illness Initial comments: Dictation was produced using [employer] dictation software. please excuse any grammatical, word or spelling errors. Chief Complaint: 57-year-old female past medical history of myocardial infarction presents with exertional chest pain. History of Present Illness: 57-year-old female she has past medical history coronary artery disease. She had a stent performed for DC in February. Patient was having exertional chest pain today. Patient states her pain started proximally 7 PM. Patient was given nitroglycerin prescription however she did not take it. Patient given a couple baby aspirin and came to the emergency department. Patient denies any radiation of symptoms or shoulders or jaw. Patient does feel slightly nauseated with some queasiness in her abdomen. Patient reports that her symptoms are somewhat to her symptoms when she was diagnosed with DC in February. The ROS documented in this emergency department record has been reviewed and confirmed by me. Those systems with pertinent positive or negative responses have been documented in the HPI. All other systems are other negative and/or noncontributory. PHYSICAL EXAM: General Impression: Alert and oriented x3, not in acute distress HEENT: Normocephalic atraumatic, extra-ocular movements intact, pupils equal and reactive to light bilaterally, mucous membranes moist. Cardiovascular: Heart regular rate and rhythm, S1&S2 audible, no murmurs, rubs or gallops Chest: Lungs clear to auscultation bilaterally, no rhonchi, no wheeze, no rales Abdomen: Bowel sounds present, abdomen soft, non-tender, non-distended, no organomegaly Musculoskeletal: Pulses present and equal in all extremities, no peripheral edema Motor: no focal deficits noted Neurological: CN II-XII grossly intact, no focal motor or sensory deficits noted Skin: Intact with no visualized rashes Psych: Normal affect and mood ED course: 57-year-old female presents with chest pain concerning for acute coronary syndrome. Patient does have past medical history. Patient reports that her symptoms are similar to DC in the past. Vital signs upon arrival are within acceptable limits. Patient's EKG is unremarkable for ischemia or infarction.Given sublingual nitroglycerin with rapid improvement of her symptoms. CBC unremarkable. Coag panel is negative. Metabolic panel shows no acute processes. Cardiac enzymes negative. Chest x-ray is nonacute. Patient is well-appearing at this time. Patient is high risk cardiac patient given recent DC and cardiac stenting. We will plan to have patient admitted observation for serial troponins and cardiac consultation. Patient understandable and agreeable to disposition. EKG interpretation: Ventricular rate 60, normal sinus rhythm, KY interval 136, QS 92, QTC 452. No KY prolongation, no QTC prolongation, no ST or T-wave changes noted. Overall, this EKG is unremarkable - Related Data Previous Rx's Medication Instructions Recorded Aspirin 81 mg PO DAILY #30 chew 02/24/16 Nitroglycerin Sl Tabs [Nitrostat] 0.4 mg SUBLINGUAL Q5M PRN #25 tab 02/24/16 Allergies Allergy/AdvReac Type Severity Reaction Status Date / Time ampicillin Allergy Unknown Verified 05/29/18 21:31 Childhood Review of Systems ROS Statement: Those systems with pertinent positive or pertinent negative responses have been documented in the HPI. ROS Other: All systems not noted in ROS Statement are negative. Past Medical History Past Medical History: Coronary Artery Disease (CAD), Chest Pain / Angina, Hyperlipidemia, Myocardial Infarction (DC) Last Myocardial Infarction Date:: february 2016 History of Any Multi-Drug Resistant Organisms: None Reported Past Surgical History: Heart Catheterization With Stent Additional Past Surgical History / Comment(s): cyst removal Past Anesthesia/Blood Transfusion Reactions: No Reported Reaction Date of Last Stent Placement:: 02/22/2016 Past Psychological History: No Psychological Hx Reported Smoking Status: Current every day smoker Past Alcohol Use History: None Reported Past Drug Use History: None Reported - Past Family History Father Additional Family Medical History / Comment(s): DAD AT AGE 78, PATIENT WAS VERY YOUNG AT THAT TIME. HISTORY UNKNOWN. Mother Family Medical History: CVA/TIA, Myocardial Infarction ([place]) General Exam Limitations: no limitations Course Vital Signs 05/29/18 05/29/18 05/29/18 20:33 21:15 22:23 Temperature 98.4 F 98.4 F Pulse Rate 71 52 L 56 L Respiratory 18 18 18 Rate Blood Pressure 146/86 141/84 107/75 O2 Sat by Pulse 98 99 98 Oximetry Medical Decision Making - Lab Data Result diagrams: 05/29/18 21:10 05/29/18 21:10 Lab Results 05/29/18 05/29/18 05/29/18 Range/Units 21:10 21:10 21:10 WBC 4.7 (3.8-10.6) k/uL RBC 4.38 (3.80-5.40) m/uL Hgb 13.9 (11.4-16.0) gm/dL Hct 39.7 (34.0-46.0) % MCV 90.7 (80.0-100.0) fL MCH 31.7 (25.0-35.0) pg MCHC 35.0 (31.0-37.0) g/dL RDW 14.6 (11.5-15.5) % Plt Count 144 L (150-450) k/uL Neutrophils % 57 % Lymphocytes % 34 % Monocytes % 5 % Eosinophils % 2 % Basophils % 1 % Neutrophils # 2.7 (1.3-7.7) k/uL Lymphocytes # 1.6 (1.0-4.8) k/uL Monocytes # 0.3 (0-1.0) k/uL Eosinophils # 0.1 (0-0.7) k/uL Basophils # 0.0 (0-0.2) k/uL PT 10.1 (9.0-12.0) sec INR 0.9 (<1.2) APTT 23.9 (22.0-30.0) sec Sodium 135 L (137-145) mmol/L Potassium 4.1 (3.5-5.1) mmol/L Chloride 104 (98-107) mmol/L Carbon Dioxide 23 (22-30) mmol/L Anion Gap 8 mmol/L BUN 14 (7-17) mg/dL Creatinine 0.70 (0.52-1.04) mg/dL Est GFR (CKD-EPI)AfAm >90 (>60 ml/min/1.73 sqM) Est GFR (CKD-EPI)NonAf >90 (>60 ml/min/1.73 sqM) Glucose 89 (74-99) mg/dL Calcium 9.3 (8.4-10.2) mg/dL Magnesium 1.7 (1.6-2.3) mg/dL Total Bilirubin 0.5 (0.2-1.3) mg/dL AST 33 (14-36) U/L ALT 27 (9-52) U/L Alkaline Phosphatase 57 (38-126) U/L Troponin I (0.000-0.034) ng/mL Total Protein 6.8 (6.3-8.2) g/dL Albumin 4.0 (3.5-5.0) g/dL 05/29/18 Range/Units 21:10 WBC (3.8-10.6) k/uL RBC (3.80-5.40) m/uL Hgb (11.4-16.0) gm/dL Hct (34.0-46.0) % MCV (80.0-100.0) fL MCH (25.0-35.0) pg MCHC (31.0-37.0) g/dL RDW (11.5-15.5) % Plt Count (150-450) k/uL Neutrophils % % Lymphocytes % % Monocytes % % Eosinophils % % Basophils % % Neutrophils # (1.3-7.7) k/uL Lymphocytes # (1.0-4.8) k/uL Monocytes # (0-1.0) k/uL Eosinophils # (0-0.7) k/uL Basophils # (0-0.2) k/uL PT (9.0-12.0) sec INR (<1.2) APTT (22.0-30.0) sec Sodium (137-145) mmol/L Potassium (3.5-5.1) mmol/L Chloride (98-107) mmol/L Carbon Dioxide (22-30) mmol/L Anion Gap mmol/L BUN (7-17) mg/dL Creatinine (0.52-1.04) mg/dL Est GFR (CKD-EPI)AfAm (>60 ml/min/1.73 sqM) Est GFR (CKD-EPI)NonAf (>60 ml/min/1.73 sqM) Glucose (74-99) mg/dL Calcium (8.4-10.2) mg/dL Magnesium (1.6-2.3) mg/dL Total Bilirubin (0.2-1.3) mg/dL AST (14-36) U/L ALT (9-52) U/L Alkaline Phosphatase (38-126) U/L Troponin I <0.012 (0.000-0.034) ng/mL Total Protein (6.3-8.2) g/dL Albumin (3.5-5.0) g/dL Disposition Clinical Impression: Chest pain Disposition: ADMITTED IP TO THIS [facility] Condition: Fair Referrals: Uyen Espinosa DO [Primary Care Provider] - 1-2 days Decision Time: 23:14
[2018-05-29 21:24] LABS: INR 0.9 (<1.2); Partial Thromboplastin Time 23.9 sec (22.0-30.0); Prothrombin Time 10.1 sec (9.0-12.0)
[2018-05-29 21:25] LABS: ALT 27 U/L (9-52); AST 33 U/L (14-36); Alkaline Phosphatase 57 U/L (38-126); Anion Gap 8 mmol/L; Blood Urea Nitrogen 14 mg/dL (7-17); Calcium 9.3 mg/dL (8.4-10.2); Carbon Dioxide 23 mmol/L (22-30); Chloride 104 mmol/L (98-107); Glucose 89 mg/dL (74-99); Magnesium 1.7 mg/dL (1.6-2.3); Potassium 4.1 mmol/L (3.5-5.1); Sodium 135 mmol/L (137-145); Total Bilirubin 0.5 mg/dL (0.2-1.3); Total Protein 6.8 g/dL (6.3-8.2)
[2018-05-29 21:29] LABS: Basophils % (A) 1 %; Eosinophils # (A) 0.1 k/uL (0-0.7); Eosinophils % (A) 2 %; HCT 39.7 % (34.0-46.0); HGB 13.9 gm/dL (11.4-16.0); Lymphocytes # (A) 1.6 k/uL (1.0-4.8); Lymphocytes % (A) 34 %; MCH 31.7 pg (25.0-35.0); MCV 90.7 fL (80.0-100.0); Mean Platelet Volume 7.7; Monocytes # (A) 0.3 k/uL (0-1.0); Monocytes % (A) 5 %; Neutrophils # (A) 2.7 k/uL (1.3-7.7); Neutrophils % (A) 57 %; Platelet Count 144 k/uL (150-450); RBC 4.38 m/uL (3.80-5.40); RDW 14.6 % (11.5-15.5); WBC 4.7 k/uL (3.8-10.6)
--- NOTE | 2018-05-29 22:07 | XR ---
EXAMINATION: XR chest 2V DATE AND TIME: 05/29/2018 9:51 PM CLINICAL INDICATION: PHH; Chest Pain TECHNIQUE: Departmental protocol COMPARISON: 02/22/2016 FINDINGS: The lungs are clear. The pleural spaces are negative. The cardiac silhouette is not enlarged. The remainder of the mediastinal silhouette is unremarkable. The skeletal structures and soft tissues are negative for acute findings. IMPRESSION: NO ACUTE PROCESS.
[2018-05-29] MEDS ORDERED: NITROGLYCERIN SL TABS 0.4 MG TAB SUBLINGUAL PRN ×2 (23:11→23:15)
[2018-05-30 03:09] LABS: Cholesterol 194 mg/dL (<200); HDL Cholesterol 77 mg/dL (40-60); LDL Cholesterol,Calculated 99 mg/dL (0-99); Triglycerides 92 mg/dL (<150)
[2018-05-30] MEDS ORDERED: ASPIRIN 325 MG TAB PO SCH (09:00)
[2018-05-30] MEDS ORDERED: ASPIRIN 81 MG PO SCH (09:00)
--- NOTE | 2018-05-30 11:00 | P.HPIM ---
History of Present Illness H&P Date: 05/30/18 The 57-year-old female patient of Dr. Espinosa. Patient presented to ER with complaints of chest pain. Patient reports the chest pain started around 7 PM last evening and stated that it radiated up to her jaw. Patient also reports that she felt slightly nauseated with the event. She denies any recent illness or cough. Patient does have a past medical history of stent placement 2 years ago. Patient is a current smoker. Chest x-ray completed in ER showing no acute process. EKG completed showing normal sinus rhythm. Opponens negative 3. Cardiology services have been consulted. Possible stress test today. At this time patient denies chest pain or shortness breath. Denies nausea vomiting or diarrhea. Patient denies any urinary burning or frequency. Review of Systems please refer to HPI otherwise unremarkable Past Medical History Past Medical History: Coronary Artery Disease (CAD), Chest Pain / Angina, Hyperlipidemia, Myocardial Infarction ([place]) Last Myocardial Infarction Date:: february 2016 History of Any Multi-Drug Resistant Organisms: None Reported Past Surgical History: Section, Heart Catheterization With Stent Additional Past Surgical History / Comment(s): cyst removal Past Anesthesia/Blood Transfusion Reactions: No Reported Reaction Date of Last Stent Placement:: 02/22/2016 Smoking Status: Current every day smoker - Past Family History Father Additional Family Medical History / Comment(s): DAD AT AGE 78, PATIENT WAS VERY YOUNG AT THAT TIME. HISTORY UNKNOWN. Mother Family Medical History: CVA/TIA, Myocardial Infarction ([place]) Medications and Allergies Home Medications Medication Instructions Recorded Confirmed Type Aspirin 81 mg PO DAILY #30 chew 02/24/16 05/30/18 Rx Nitroglycerin Sl Tabs [Nitrostat] 0.4 mg SUBLINGUAL Q5M PRN #25 tab 02/24/16 05/30/18 Rx Allergies Allergy/AdvReac Type Severity Reaction Status Date / Time ampicillin Allergy Unknown Verified 05/30/18 00:03 Childhood Physical Exam Vitals: Vital Signs Temp Pulse Pulse Resp BP BP BP 05/30/18 07:15 98.4 F 55 L 16 115/63 05/30/18 04:00 97.9 F 51 L 18 112/67 05/30/18 03:52 18 05/30/18 00:00 97.5 F L 49 L 18 125/88 05/29/18 23:32 98.1 F 57 L 18 143/86 05/29/18 22:23 98.4 F 56 L 18 107/75 05/29/18 21:15 52 L 18 141/84 05/29/18 20:33 98.4 F 71 18 146/86 Pulse Ox 05/30/18 07:15 97 05/30/18 04:00 98 05/30/18 03:52 05/30/18 00:00 95 05/29/18 23:32 98 05/29/18 22:23 98 05/29/18 21:15 99 05/29/18 20:33 98 Intake and Output 05/29/18 05/30/18 05/30/18 22:59 06:59 14:59 Other: # Voids 2 Weight 45.359 kg 45.359 kg Head normocephalic Neck supple Lungs clear to auscultation bilaterally no wheezing or crackles Heart regular rate and rhythm S1-S2, no rub or gallop Abdomen is soft nontender nondistended positive bowel sounds no hepa tosplenomegaly Extremities no edema Neuro alert and orientated to 3 Results CBC & Chem 7: 05/29/18 21:10 05/29/18 21:10 Labs: Abnormal Lab Results - Last 24 Hours (Table) 05/29/18 05/29/18 05/30/18 Range/Units 21:10 21:10 02:40 Plt Count 144 L (150-450) k/uL Sodium 135 L (137-145) mmol/L HDL Cholesterol 77 H (40-60) mg/dL Thrombosis Risk Factor Assmnt - Choose All That Apply Each Factor Represents 1 point: Age 41-60 years Thrombosis Risk Factor Assessment Total Risk Factor Score: 1 Thrombosis Risk Factor Assessment Level: Low Risk Assessment and Plan Assessment: 1. Chest pain. Troponins negative 3. Chest x-ray completed showing no acute process. Cardiology services have been consulted. Possible stress test today 2. History of coronary artery disease with stent placement. Patient reports approximately 2 years ago. 3. Nicotine dependence. Patient educated greater than 3 minutes on smoking cessation. 4. Hyperlipidemia 5. History of . Time with Patient: Greater than 30 (Greater than 60% of the total time spent in counseling and coordination of care. I performed an examination of the patient and discussed their management with the Nurse Practitioner. I have reviewed the Nurse Practitioner's notes and agree with the documented findings and plan of care)
[2018-05-30] MEDS ORDERED: ATORVASTATIN 80 MG TAB PO SCH (11:30)
--- NOTE | 2018-05-30 11:30 | P.CRDCN ---
History of Present Illness History of present illness: This is a pleasant 57-year-old female past medical history significant for coronary artery disease status post stent placement in the setting of an acute myocardial infarction, dyslipidemia, chronic nicotine dependence and hypertension. In February 2016 she underwent successful stent placement to the mid LAD. Shortly thereafter in July 2016 she was having ongoing chest discomfo rt and shortness of breath and underwent repeat cardiac catheterization which revealed a patent stent in the LAD with mild less than 20% plaque and intimal disease. She follows in the office with Dr. Leger. We've been asked to see her in consultation secondary to chest discomfort. She states yesterday she was walking up to the store when she started feeling an intense cramping sensation in the lower abdomen pelvic region that radiated up into her chest. She states it felt like acute bubbles rising up her chest and that her chest was going to "explode". The symptoms persisted for approximately one hour. She continued to walk around to see if it was a gas-like pain subsided with activity. However the symptoms did not diminish. Upon arrival to the emergency department she was continued to have ongoing chest discomfort associated with some mild nausea. She was given nitroglycerin and aspirin which ultimately subsided her discomfort. She is seen and examined resting comfortably in bed in no acute distress. She has had no further symptoms of chest discomfort, abdominal discomfort or nausea. She states intermittently from time to time over the previous 6 months she notices a bulge in the base of her midline incision from her section hypertrophy intermittently at times sounding similar to an incisional hernia. At the time of my exam her abdomen is soft with no evidence of hernia. EKG reveals sinus mechanism with anterior T-wave inversions that is consistent with previous EKGs and actually looks improved compared to previous. Chest x-ray is negative for an acute cardiopulmonary process. Laboratory data reviewed, WBC 4.7, hemoglobin 13.9, platelets 144, sodium 135, potassium 4.1, creatinine 0.7, magnesium 1.7, cardiac enzymes negative 3, LDL 99. Current cardiac medications include aspirin 81 mg daily. She saw Dr. Chase last in May 2017 and at that time she was taking atorvastatin 40 mg daily, Plavix 75 mg daily, lisinopril 5 mg daily and metoprolol 12.5 mg twice a day. She states she stopped taking all these medications recently on her own terms. Most recent echocardiogram performed in February 2016 reveals preserved left ventricular systolic function with ejection fraction 55-60%. At the time of my exam: CONSTITUTIONAL: Denies fever. Denies chills. EYES: Denies blurred vision. Denies vision changes. Denies eye pain. EARS, NOSE, MOUTH & THROAT: Denies headache. Denies sore throat. Denies ear pain. CARDIOVASCULAR: Denies chest pain. Denies shortness of breath. Denies orthopnea. Denies PND. Denies palpitations. RESPIRATORY: Denies cough. GASTROINTESTINAL: Denies abdominal pain. Denies diarrhea. Denies constipation. Denies nausea. Denies vomiting. MUSCULOSKELETAL: Denies myalgias. INTEGUMENTARY: Denies pruitis. Denies rash. NEUROLOGIC: Denies numbness. Denies tingling. Denies weakness. PSYCHIATRIC: Denies anxiety. Denies depression. ENDOCRINE: Denies fatigue. Denies weight change. Denies polydipsia. Denies polyurina. GENITOURINARY: Denies burning, hematuria or urgency with micturation. HEMATOLOGIC: Denies history of anemia. Denies bleeding. Blood pressure 115/63 heart rate 55 afebrile maintaining oxygen saturation on room air GENERAL: This is a 57-year-old female in no apparent distress at the time of my examination. Appears older than stated age. HEENT: Head is atraumatic, normocephalic. Pupils are equal, round. Sclerae anicteric. Conjunctivae are clear. Mucous membranes of the mouth are moist. Neck is supple. There is no jugular venous distention. No carotid bruit is heard. LUNGS: Clear to auscultation no wheezes, rales or rhonchi. No chest wall tenderness is noted on palpation or with deep breathing. Diminished bilaterally. HEART: Regular rate and rhythm without murmurs, rubs or gallops. S1 and S2 heard. ABDOMEN: Soft, nontender. Bowel sounds are heard. No organomegaly noted. EXTREMITIES: No evidence of peripheral edema and no calf tenderness noted. VASCULAR: Radial and dorsalis pedis pulses palpated, no evidence of clubbing. NEUROLOGIC: Patient is awake, alert and oriented x3. ASSESSMENT Lower abdominal pain and bloating with radiation up into the chest. An acute coronary event has been ruled out. History of coronary artery disease status post placement to the LAD in the setting of an acute myocardial infarction Dyslipidemia Hypertension Chronic nicotine dependence Noncompliance PLAN An acute coronary event has been ruled out. Medical management of possible hernia per primary care team. Recommend resuming her atorvastatin 80 mg daily and aspirin 81 mg daily. Heart rates have been on the low side in the high 40's and low 50's, will not resume lopressor. Obtain 2-D echocardiogram and Doppler study to assess cardiac structure and function. Perform stress echocardiogram to assess for stress-induced ischemia. Smoking cessation recommended. The importance of medication compliance discussed. Thank you kindly for this consultation. Nurse Practitioner note has been reviewed, I agree with a documented findings and plan of care. Patient was seen and examined. Past Medical History Past Medical History: Coronary Artery Disease (CAD), Chest Pain / Angina, Hyperlipidemia, Myocardial Infarction ([place]) Last Myocardial Infarction Date:: february 2016 History of Any Multi-Drug Resistant Organisms: None Reported Past Surgical History: Section, Heart Catheterization With Stent Additional Past Surgical History / Comment(s): cyst removal Past Anesthesia/Blood Transfusion Reactions: No Reported Reaction Date of Last Stent Placement:: 02/22/2016 Smoking Status: Current every day smoker - Past Family History Father Additional Family Medical History / Comment(s): DAD AT AGE 78, PATIENT WAS VERY YOUNG AT THAT TIME. HISTORY UNKNOWN. Mother Family Medical History: CVA/TIA, Myocardial Infarction ([place]) Medications and Allergies Home Medications Medication Instructions Recorded Confirmed Type Aspirin 81 mg PO DAILY #30 chew 02/24/16 05/30/18 Rx Nitroglycerin Sl Tabs [Nitrostat] 0.4 mg SUBLINGUAL Q5M PRN #25 tab 02/24/16 05/30/18 Rx Allergies Allergy/AdvReac Type Severity Reaction Status Date / Time ampicillin Allergy Unknown Verified 05/30/18 00:03 Childhood Physical Exam Vitals: Vital Signs Temp Pulse Pulse Resp BP BP BP 05/30/18 07:15 98.4 F 55 L 16 115/63 05/30/18 04:00 97.9 F 51 L 18 112/67 05/30/18 03:52 18 05/30/18 00:00 97.5 F L 49 L 18 125/88 05/29/18 23:32 98.1 F 57 L 18 143/86 05/29/18 22:23 98.4 F 56 L 18 107/75 05/29/18 21:15 52 L 18 141/84 05/29/18 20:33 98.4 F 71 18 146/86 Pulse Ox 05/30/18 07:15 97 05/30/18 04:00 98 05/30/18 03:52 05/30/18 00:00 95 05/29/18 23:32 98 05/29/18 22:23 98 05/29/18 21:15 99 05/29/18 20:33 98 Intake and Output 05/29/18 05/30/18 05/30/18 22:59 06:59 14:59 Other: # Voids 2 Weight 45.359 kg Results 05/29/18 21:10 05/29/18 21:10 Cardiac Enzymes 05/29/18 05/29/18 05/30/18 Range/Units 21:10 21:10 02:40 AST 33 (14-36) U/L Troponin I <0.012 <0.012 (0.000-0.034) ng/mL 05/30/18 Range/Units 08:05 AST (14-36) U/L Troponin I <0.012 (0.000-0.034) ng/mL Coagulation 05/29/18 Range/Units 21:10 PT 10.1 (9.0-12.0) sec APTT 23.9 (22.0-30.0) sec Lipids 05/30/18 Range/Units 02:40 Triglycerides 92 (<150) mg/dL Cholesterol 194 (<200) mg/dL HDL Cholesterol 77 H (40-60) mg/dL CBC 05/29/18 Range/Units 21:10 WBC 4.7 (3.8-10.6) k/uL RBC 4.38 (3.80-5.40) m/uL Hgb 13.9 (11.4-16.0) gm/dL Hct 39.7 (34.0-46.0) % Plt Count 144 L (150-450) k/uL Comprehensive Metabolic Panel 05/29/18 Range/Units 21:10 Sodium 135 L (137-145) mmol/L Potassium 4.1 (3.5-5.1) mmol/L Chloride 104 (98-107) mmol/L Carbon Dioxide 23 (22-30) mmol/L BUN 14 (7-17) mg/dL Creatinine 0.70 (0.52-1.04) mg/dL Glucose 89 (74-99) mg/dL Calcium 9.3 (8.4-10.2) mg/dL AST 33 (14-36) U/L ALT 27 (9-52) U/L Alkaline Phosphatase 57 (38-126) U/L Total Protein 6.8 (6.3-8.2) g/dL Albumin 4.0 (3.5-5.0) g/dL Current Medications Generic Name Dose Route Start Last Admin Trade Name Freq PRN Reason Stop Dose Admin Aspirin 325 mg 05/30/18 09:00 Aspirin PO DAILY ROSS Nitroglycerin 0.4 mg 05/29/18 23:11 Nitrostat SUBLINGUAL Q5M PRN Chest Pain Intake and Output 05/29/18 05/30/18 05/30/18 22:59 06:59 14:59 Other: # Voids 2 Weight 45.359 kg 05/29/18 21:10 05/29/18 21:10
[2018-05-30 11:52] VITALS: BP 119/73; PULSE 62; RESP 18; TEMP 98.1
--- NOTE | 2018-05-30 12:23 | ECHOS ---
STRESS ECHOCARDIOGRAM INDICATIONS: Chest pain. MEDICATIONS: Aspirin, Nitro tabs BASELINE HEART RATE: 50 BASELINE BLOOD PRESSURE: 122/63 MAXIMUM HEART RATE: 153 MAXIMUM BLOOD PRESSURE: 130/77 85% MPHR: 140 100% MPHR: 165 METS: 11.3 MAXIMUM STAGE REACHED: 4 TOTAL EXERCISE TIME: 10:00 CLINICAL INFORMATION: Patient was exercised for a total period of 10 minutes. The peak heart rate of 153 was achieved. Maximum blood pressure of 130/77 mmHg was noted. Resting EKG shows normal sinus rhythm with normal MA interval and QRS duration and normal ST-T waves. During exercise, J-point depression with upsloping ST segments are noted. Patient did not complain of any chest pain during the test. The baseline echocardiographic images reveals normal left ventricular chamber size with normal left ventricular systolic function. In the immediate postexercise period, normal increase in the wall thickness and contractility is noted. FINAL IMPRESSION: This stress echocardiographic study is negative for stress-induced ischemia. EKG portion of the stress test is not suggestive of ischemia. Patient's exercise tolerance is normal. Patient did not complain of any chest pain during the test. MMODL / IJN: [id number] /
--- NOTE | 2018-05-30 12:53 | ECHOF ---
Referral Reason:cp MEASUREMENTS -------- HEIGHT: 160.0 cm WEIGHT: 45.4 kg BP: RVIDd: 2.6 cm (< 3.3) IVSd: 0.7 cm (0.6 - 1.1) LVIDd: 3.8 cm (3.9 - 5.3) LVPWd: 0.8 cm (0.6 - 1.1) IVSs: 1.2 cm LVIDs: 2.2 cm LVPWs: 1.3 cm LAESV Index (A-L): 22.93 ml/m Ao Diam: 3.0 cm (2.0 - 3.7) AV Cusp: 2.3 cm (1.5 - 2.6) LA Diam: 2.6 cm (2.7 - 3.8) MV EXCURSION: 18.221 mm (> 18.000) MV EF SLOPE: 97 mm/s (70 - 150) EPSS: 0.3 cm MV E Jh: 0.89 m/s MV DecT: 253 ms MV A Jh: 0.68 m/s MV E/A Ratio: 1.31 RAP: 5.00 mmHg RVSP: 22.56 mmHg FINDINGS -------- Sinus rhythm. This was a technically good study. The left ventricular size is normal. Left ventricular wall thickness is normal. Overall left vent ricular systolic function is normal with, an EF between 55 - 60 %. The right ventricle is normal in size. Normal LA size by volume 22+/-6 ml/m2. The right atrial size is normal. The aortic valve is trileaflet and appears structurally normal. The mitral valve leaflets are mildly thickened. There is trace mitral regurgitation. Trace tricuspid regurgitation present. The right ventricular systolic pressure, as measured by Dopp ler, is 22.56mmHg. Trace/mild (physiologic) pulmonic regurgitation. The aortic root size is normal. Normal inferior vena cava with normal inspiratory collapse consistent with estimated right atrial pre ssure of 5 mmHg. There is no pericardial effusion. CONCLUSIONS -------- 1. Sinus rhythm. 2. This was a technically good study. 3. The left ventricular size is normal. 4. Left ventricular wall thickness is normal. 5. Overall left ventricular systolic function is normal with, an EF between 55 - 60 %. 6. The right ventricle is normal in size. 7. Normal LA size by volume 22+/-6 ml/m2. 8. The right atrial size is normal. 9. The aortic valve is trileaflet and appears structurally normal. 10. The mitral valve leaflets are mildly thickened. 11. There is trace mitral regurgitation. 12. Trace tricuspid regurgitation present. 13. The right ventricular systolic pressure, as measured by Doppler, is 22.56mmHg. 14. Trace/mild (physiologic) pulmonic regurgitation. 15. The aortic root size is normal. 16. Normal inferior vena cava with normal inspiratory collapse consistent with estimated right atrial pressure of 5 mmHg. 17. There is no pericardial effusion. SCREENER AND BLENDER: Blank Gamble RDCS
--- NOTE | 2018-05-30 14:29 | P.DS ---
Providers Date of admission: 05/29/18 23:11 Expected date of discharge: 05/30/18 Attending physician: Lily Marquis Consults: 05/29/18 23:11 Consult Physician Urgent Consulting Provider: Kaur Leger Consult Reason/Comments: chest pain Do you want consulting provider notified?: Yes Primary care physician: Uyen Espinosa Hospital Course: Discharge diagnosis 1. Chest pain. Troponins negative 3. Chest x-ray completed showing no acute process. Negative stress test per cardiology. 2-D echo completed showing EF of 55-60%. Patient has been cleared for discharge from cardiology standpoint. Follow-up in [address] Leger 2. History of coronary artery disease with stent placement. Patient reports approximately 2 years ago. 3. Nicotine dependence. Patient educated greater than 3 minutes on smoking cessation. Declines nicotine patch 4. Hyperlipidemia 5. History of . Hospital course The 57-year-old female patient of Dr. Espinosa. Patient presented to ER with complaints of chest pain. Patient reports the chest pain started around 7 PM last evening and stated that it radiated up to her jaw. Patient also reports that she felt slightly nauseated with the event. She denies any recent illness or cough. Patient does have a past medical history of stent placement 2 years ago. Patient is a current smoker. Chest x-ray completed in ER showing no acute process. EKG completed showing normal sinus rhythm. Opponens negative 3. Cardiology services have been consulted. Possible stress test today. At this time patient denies chest pain or shortness breath. Denies nausea vomiting or diarrhea. Patient denies any urinary burning or frequency. Stress was completed and negative for ischemia. Patient has been cleared for discharge from cardiology standpoint. Patient follow-up in [address] Leger. This time patient denies chest pain or shortness breath. Patient denies nausea vomiting or diarrhea. Patient denies any urinary burning or frequency I performed an examination of the patient and discussed their management with the Nurse Practitioner. I have reviewed the Nurse Practitioner's notes and agree with the documented findings and plan of care Patient Condition at Discharge: Stable Plan - Discharge Summary New Discharge Prescriptions: No Action Aspirin 81 mg PO DAILY #30 chew Nitroglycerin Sl Tabs [Nitrostat] 0.4 mg SUBLINGUAL Q5M PRN #25 tab PRN Reason: Chest Pain Discharge Medication List Aspirin 81 mg PO DAILY #30 chew 02/24/16 [Rx] Nitroglycerin Sl Tabs [Nitrostat] 0.4 mg SUBLINGUAL Q5M PRN #25 tab 02/24/16 [Rx] Follow up Appointment(s)/Referral(s): Uyen Espinosa DO [Primary Care Provider] - 1-2 days
[2018-05-30 14:41] VITALS: BMI 17.6
[2018-05-31] MEDS ORDERED: PANTOPRAZOLE 40 MG TABLET PO SCH (07:30)
[2018-05-31] MEDS ORDERED: ASPIRIN 81 MG PO SCH (09:00)
[2018-05-31] MEDS ORDERED: NICOTINE 14MG/24HR PATCH TRANSDERM SCH (09:00)
== END 2018-05-30 16:26 | disposition home or self-care (01) ==
LOC: EC 20:29 → 1SOBS 23:11
PROVIDERS: ADMIT Internal Medicine; ATTEND Internal Medicine
DX: R07.89 Other chest pain (principal); R11.0 Nausea; I25.10 Atherosclerotic heart disease of native coronary artery without angina pectoris; R14.0 Abdominal distension (gaseous); R10.30 Lower abdominal pain, unspecified; I10 Essential (primary) hypertension; E78.5 Hyperlipidemia, unspecified; F17.200 Nicotine dependence, unspecified, uncomplicated; Z79.82 Long term (current) use of aspirin; Z88.0 Allergy status to penicillin; Z95.5 Presence of coronary angioplasty implant and graft; Z91.14 Patient's other noncompliance with medication regimen; I25.2 Old myocardial infarction; Z98.891 History of uterine scar from previous surgery; Z82.49 Family history of ischemic heart disease and other diseases of the circulatory system; Z82.3 Family history of stroke
CPT/HCPCS: 99285; 36415; 93005; 93306; 93351; 80061; 80053; 83735; 84484 ×2; 85025; 85610; 85730; 71046; G0378 ×2

== ENCOUNTER → 2018-06-30 | Outpatient (CLI) | payer OTHER ==
[2018-06-30 12:07] LABS: Basophils # (A) 0.1 k/uL (0-0.2); Basophils % (A) 1 %; Eosinophils # (A) 0.1 k/uL (0-0.7); Eosinophils % (A) 2 %; HCT 45.7 % (34.0-46.0); HGB 14.6 gm/dL (11.4-16.0); Lymphocytes # (A) 1.5 k/uL (1.0-4.8); Lymphocytes % (A) 27 %; MCH 29.9 pg (25.0-35.0); MCHC 31.9 g/dL (31.0-37.0); MCV 93.6 fL (80.0-100.0); Mean Platelet Volume 6.9; Monocytes # (A) 0.2 k/uL (0-1.0); Monocytes % (A) 4 %; Neutrophils # (A) 3.5 k/uL (1.3-7.7); Neutrophils % (A) 64 %; Platelet Count 169 k/uL (150-450); RBC 4.89 m/uL (3.80-5.40); WBC 5.5 k/uL (3.8-10.6)
== END ==
LOC: LABPAT 11:50
PROVIDERS: ATTEND Surgery
DX: Z01.812 Encounter for preprocedural laboratory examination (principal); K43.0 Incisional hernia with obstruction, without gangrene; F17.200 Nicotine dependence, unspecified, uncomplicated
CPT/HCPCS: 36415; 85025

== ENCOUNTER 2018-07-03 08:40 | Day surgery (SDC) | payer OTHER ==
[2018-06-29 08:15] VITALS: BMI 19.1
[~2018-07-03 08:40] MED LIST changes: -ALPRAZolam 0.25 MG TAB PO PRN; -ALPRAZolam 0.5 MG TAB PO PRN; -ASPIRIN 325 MG TAB PO STA; -ATORVASTATIN 80 MG TAB PO STA; +DEXAMETHASONE SOD PHOSPHATE 10 MG/ML 1 ML VIAL IV ONE; +HEPARIN SODIUM,PORCINE 5,000 UNIT/ML 1 ML VIAL SQ ONE; +LACTATED RINGERS 1,000 ML IV SCH; +MIDAZOLAM 2 MG/2 ML VIAL IV PRN; -NITROGLYCERIN SL TABS 0.4 MG TAB SUBLINGUAL PRN; +ONDANSETRON 4 MG/2 ML VIAL IVP ONE; +SCOPOLAMINE 1.5MG/72HR PATCH TRANSDERM ONE; -SODIUM CHLORIDE 0.9% 1,000 ML in EMPTY BAG 1 BAG IV ONE; +ceFAZolin IN SWFI 2 GM/20 ML SYRINGE IVP ONE
[2018-07-03] MEDS ORDERED: fentaNYL (PF) 50 MCG/ML 2 ML AMP IVP ONE (09:57)
--- NOTE | 2018-07-03 10:50 | P.GSHP ---
History of Present Illness H&P Date: 07/03/18 Chief Complaint: Incisional hernia This a 57-year-old female who presents today for laparoscopic robotic repair of incisional hernia. Patient is developed a low midline incisional hernia related to a previous Pfannenstiel incision. Past Medical History Past Medical History: Coronary Artery Disease (CAD), Chest Pain / Angina, Hyperlipidemia, Myocardial Infarction ([place]) Additional Past Medical History / Comment(s): recent admission in May for abdominal pain per pt that radiated up into to chest, she thinks was from hernia, stress test/echo wnl per pt. Last Myocardial Infarction Date:: february 2016 History of Any Multi-Drug Resistant Organisms: None Reported Past Surgical History: Section, Heart Catheterization With Stent Additional Past Surgical History / Comment(s): cyst removal Past Anesthesia/Blood Transfusion Reactions: No Reported Reaction Date of Last Stent Placement:: 02/22/2016 Smoking Status: Current every day smoker - Past Family History Father Additional Family Medical History / Comment(s): DAD AT AGE 78, PATIENT WAS VERY YOUNG AT THAT TIME. HISTORY UNKNOWN. Mother Family Medical History: CVA/TIA, Myocardial Infarction ([place]) Medications and Allergies Home Medications Medication Instructions Recorded Confirmed Type Aspirin 81 mg PO DAILY #30 chew 02/24/16 06/28/18 Rx Nitroglycerin Sl Tabs [Nitrostat] 0.4 mg SUBLINGUAL Q5M PRN #25 tab 02/24/16 06/28/18 Rx Atorvastatin [Lipitor] 80 mg PO DAILY 30 Days #30 tab 05/30/18 06/28/18 Rx Allergies Allergy/AdvReac Type Severity Reaction Status Date / Time ampicillin Allergy Unknown Verified 07/03/18 09:04 Childhood Surgical - Exam Vital Signs Temp Pulse Resp BP Pulse Ox 97.4 F L 57 L 17 123/64 98 07/03/18 09:14 07/03/18 09:14 07/03/18 09:14 07/03/18 09:14 07/03/18 09:14 - General well developed, well nourished, no distress - Eyes PERRL - ENT normal pinna - Neck no masses - Respiratory normal expansion - Cardiovascular Rhythm: regular - Abdomen Abdomen: soft, non tender Hernia: incisional (Low midline incisional hernia with 2 cm mass) Assessment and Plan Assessment: Incisional hernia. We'll perform laparoscopic robotic-assisted repair.
[2018-07-03] MEDS ORDERED: fentaNYL (PF) 50 MCG/ML 2 ML AMP ONE (10:53)
[2018-07-03] MEDS ORDERED: ROCURONIUM BROMIDE 10 MG/ML 10 ML VIAL IV ONE (10:53)
[2018-07-03] MEDS ORDERED: KETOROLAC 30 MG/ML 1 ML VIAL ONE (10:53)
[2018-07-03] MEDS ORDERED: GLYCOPYRROLATE 0.2 MG/ML 2 ML VIAL ONE (10:53)
[2018-07-03] MEDS ORDERED: SUCCINYLCHOLINE CHLORIDE 100 MG/5 ML SYR IV ONE (10:53)
[2018-07-03] MEDS ORDERED: MIDAZOLAM 2 MG/2 ML VIAL ONE (10:53)
[2018-07-03] MEDS ORDERED: LIDOCAINE 1% INJ 10MG/ML (20 ML MDV) ONE (10:53)
[2018-07-03] MEDS ORDERED: NEOSTIGMINE 1 MG/ML 10 ML VIAL ONE (10:53)
[2018-07-03] MEDS ORDERED: ROPIVACAINE 5 MG/ML 30 ML VIAL ONE (10:53)
[2018-07-03] MEDS ORDERED: PROPOFOL 10 MG/ML 20 ML VIAL IV ONE (10:53)
--- NOTE | 2018-07-03 10:57 | P.ONQ ---
Anesthesiology Proc Note - PNB - Peripheral Nerve Block Performed Bilateral Rectus Abdominis Single Time Out Performed: Yes Procedure Start Time: 09:52 Indication: Acute Post-Operative Pain Specifically requested for management of pain by DrMeaghan: Baljit Cochran Sedation Type: Sedate with meaningful contact maintained Preparation: Sterile Prep Position: Supine Catheter: None Needle Types: Other (see comment) (LOKI DONALD) Needle Size: 100mm (4") Needle Gauge: 18 Technique: Ultrasound Injectate: Other (see comment) (0.25% ropivacaine/0.5% lidocaine 20 mL per side) Adjunct: Epinephrine (see comment for dilution ratio) (1:200,000) Blood Aspirated: No Pain Paresthesia on Injection Noted: No Resistance on Injection: Normal Events: Uneventful and Well Tolerated
[2018-07-03] MEDS ORDERED: BUPIVACAINE (PF) 0.25% 30 ML VIAL SQ ONE (11:38)
[2018-07-03 12:12] VITALS: TEMP 98.5
[2018-07-03] MEDS: HYDROmorphone 0.5 MG/0.5 ML SYRINGE IVP PRN ×2 (12:31→12:37)
--- NOTE | 2018-07-03 12:33 | P.OP ---
Date of Procedure: 07/03/18 Preoperative Diagnosis: Incisional hernia Postoperative Diagnosis: Incisional hernia Procedure(s) Performed: Laparoscopic robotic-assisted repair of incisional hernia Anesthesia: SANDRO Surgeon: Baljit Cochran Estimated Blood Loss (ml): 5 Pathology: none sent Condition: stable Disposition: PACU Description of Procedure: The patient was placed on the operating table in the supine position. She received general anesthesia. Her abdomen was prepped and draped usual fashion. Using a 5 mm optical trocar under direct visualization the peritoneal cavity was entered in the left upper quadrant. The abdomen was then insufflated. The laparoscope was placed back into the perineal cavity. Next a 8 mm robotic trocar was placed in the left lower quadrant and a 8 mm robotic trochars placed in the right epigastric position. The original 5 mm trocar was exchanged for a 12 mm robotic trocar. The patient's placed in the left side up position. And the patient was docked to the robot. The incisional hernia was visualized. The patient had a low midline incisional hernia. There was a hernia sac visualized. A small skin incision was made over the hernia sac and this was dissected free. This was sent to pathology. Using hook cautery the peritoneum over the incisional hernia was excised. The fascial opening was repaired using 0V LOC suture. Next a piece of 11 cm round ventral light ST mesh was placed into the. Cavity and secured with 2 OV lock suture. The patient was undocked the robot. The needles were retrieved. The fascia of the 12 mm trocar site was closed with 0 Ethibond suture. Skin was closed interrupted 3-0 Monocryl suture. Dermabond dressings was applied. Patient tolerated procedure well and was sent to recovery room stable condition.
[2018-07-03 12:49] VITALS: RESP 16
[2018-07-03] MEDS ORDERED: LACTATED RINGERS 1,000 ML IV ONE (12:56)
[2018-07-03 13:33] VITALS: BP 115/60; PULSE 53
== END 2018-07-03 13:56 | disposition home or self-care (01) ==
LOC: OR 08:40
PROVIDERS: ATTEND Surgery
DX: K43.2 Incisional hernia without obstruction or gangrene (principal); I25.10 Atherosclerotic heart disease of native coronary artery without angina pectoris; I10 Essential (primary) hypertension; F17.210 Nicotine dependence, cigarettes, uncomplicated; E78.5 Hyperlipidemia, unspecified; I25.2 Old myocardial infarction; Z95.5 Presence of coronary angioplasty implant and graft; Z82.49 Family history of ischemic heart disease and other diseases of the circulatory system; Z79.82 Long term (current) use of aspirin; Z79.899 Other long term (current) drug therapy; Z88.0 Allergy status to penicillin
CPT/HCPCS: 49654; S2900; 64488; 86850; 86900; 86901; 88302

== ENCOUNTER 2018-10-16 19:28 | Emergency (ER) | payer OTHER ==
[2018-10-16 20:05] VITALS: TEMP 98.1
[2018-10-16] MEDS ORDERED: SODIUM CHLORIDE 0.9% 1,000 ML IV STA (20:49)
[2018-10-16 21:22] LABS: Anisocytosis Slight; Basophils # (A) 0.1 k/uL (0-0.2); Basophils % (A) 1 %; Eosinophils # (A) 0.1 k/uL (0-0.7); Eosinophils % (A) 2 %; HCT 39.5 % (34.0-46.0); HGB 13.1 gm/dL (11.4-16.0); Lymphocytes # (A) 1.7 k/uL (1.0-4.8); Lymphocytes % (A) 35 %; MCH 29.8 pg (25.0-35.0); MCHC 33.1 g/dL (31.0-37.0); MCV 90.1 fL (80.0-100.0); Mean Platelet Volume 7.6; Monocytes # (A) 0.2 k/uL (0-1.0); Monocytes % (A) 5 %; Neutrophils # (A) 2.7 k/uL (1.3-7.7); Neutrophils % (A) 55 %; Platelet Count 143 k/uL (150-450); RBC 4.39 m/uL (3.80-5.40); RDW 16.3 % (11.5-15.5)
[2018-10-16 21:24] LABS: Appearance,Urine Clear (Clear); Bilirubin,Urine Negative (Negative); Blood,Urine Negative (Negative); Color,Urine Yellow; Glucose,Urine (UA) Negative (Negative); Ketones,Urine Negative (Negative); Leukocyte Esterase,Urine Negative (Negative); Nitrite,Urine Negative (Negative); Protein,Urine Negative (Negative); Specific Gravity,Urine 1.018 (1.001-1.035); Urobilinogen,Urine <2.0 mg/dL (<2.0)
--- NOTE | 2018-10-16 21:29 | ED ---
Abdominal Pain HPI - General Chief Complaint: Abdominal Pain Stated Complaint: Abdominal pain, hernia surgery few months ago Time Seen by Provider: 10/16/18 20:45 Source: patient, RN notes reviewed, old records reviewed Mode of arrival: ambulatory Limitations: no limitations - History of Present Illness Initial Comments: Patient is a 57-year-old female presents emergency from severe chronic abdominal pain post hernia repair surgery. Patient reports that her hernia repair was done in June by Dr. Alfredo. She's had chronic pain since that time. She saw her PCP and gave her lidocaine cream. She states she wanted him follow-up with her PCP and surgeon this past week with a rescheduled her appointment. She has one for next week. She denies any fevers or chills or any changes in her urination or bowel habits. - Related Data Home Medications Medication Instructions Recorded Confirmed No Known Home Medications 10/16/18 10/16/18 Allergies Allergy/AdvReac Type Severity Reaction Status Date / Time ampicillin Allergy Unknown Verified 10/16/18 21:14 Childhood Review of Systems ROS Statement: Those systems with pertinent positive or pertinent negative responses have been documented in the HPI. ROS Other: All systems not noted in ROS Statement are negative. Past Medical History Past Medical History: Coronary Artery Disease (CAD), Chest Pain / Angina, Hype rlipidemia, Myocardial Infarction ([place]) Additional Past Medical History / Comment(s): recent admission in May for abdominal pain per pt that radiated up into to chest, she thinks was from hernia, stress test/echo wnl per pt. Last Myocardial Infarction Date:: february 2016 History of Any Multi-Drug Resistant Organisms: None Reported Past Surgical History: Section, Heart Catheterization With Stent Additional Past Surgical History / Comment(s): cyst removal Past Anesthesia/Blood Transfusion Reactions: No Reported Reaction Date of Last Stent Placement:: 02/22/2016 Past Psychological History: No Psychological Hx Reported Smoking Status: Current every day smoker Past Alcohol Use History: None Reported Past Drug Use History: None Reported - Past Family History Father Additional Family Medical History / Comment(s): DAD AT AGE 78, PATIENT WAS VERY YOUNG AT THAT TIME. HISTORY UNKNOWN. Mother Family Medical History: CVA/TIA, Myocardial Infarction ([place]) General Exam - General Exam Comments Initial Comments: Well-appearing [id number] female. No distress. Limitations: no limitations General appearance: alert, in no apparent distress Head exam: Present: atraumatic, normocephalic, normal inspection Eye exam: Present: normal appearance, PERRL, EOMI. Absent: scleral icterus, conjunctival injection, periorbital swelling ENT exam: Present: normal exam, mucous membranes moist Neck exam: Present: normal inspection. Absent: tenderness, meningismus, lymphadenopathy Respiratory exam: Present: normal lung sounds bilaterally Cardiovascular Exam: Present: regular rate, normal rhythm, normal heart sounds. Absent: systolic murmur, diastolic murmur, rubs, gallop, clicks GI/Abdominal exam: Present: soft, tenderness (Lower abdominal tenderness. Tenderness over incision sites. Incision sites otherwise appear well and e rythema.), normal bowel sounds. Absent: distended, guarding, rebound, rigid Extremities exam: Present: normal inspection, full ROM, normal capillary refill. Absent: tenderness, pedal edema, joint swelling, calf tenderness Back exam: Present: normal inspection Neurological exam: Present: alert, oriented X3, CN II-XII intact Psychiatric exam: Present: normal affect, normal mood Course Vital Signs 10/16/18 10/16/18 20:00 22:39 Temperature 98.1 F Pulse Rate 71 53 L Respiratory 16 17 Rate Blood Pressure 119/80 122/79 O2 Sat by Pulse 96 97 Oximetry Medical Decision Making - Medical Decision Making Patient is a 57-year-old female presented today for chronic abdominal pain 3 months post hernia repair surgery. At this time Patient has no vomiting. She does complain of some nausea from time to time. Normal bowel habits. This time she has no significant tenderness. Her abdominal exam is also unremarkable of this incision sites appear well. This time patient's labwork was reviewed and unremarkable. CT did show some evidence of dilated bowels but no concern for obstruction. Recommended repeat CT with oral contrast. The patient's normal blood work and no vomiting I discussed that her for any significant infection or concern for obstruction. I discussed the Patient that she needs follow-up with her surgeon. She was given a Tylenol starter pack for chronic pain and discharge. Discussed that she needs to follow-up with her surgeon. She does have an appointment on october 23 for recheck. - Lab Data Result diagrams: 10/16/18 21:12 10/16/18 21:12 Lab Results 10/16/18 10/16/18 10/16/18 Range/Units 21:12 21:12 21:12 WBC 5.0 (3.8-10.6) k/uL RBC 4.39 (3.80-5.40) m/uL Hgb 13.1 (11.4-16.0) gm/dL Hct 39.5 (34.0-46.0) % MCV 90.1 (80.0-100.0) fL MCH 29.8 (25.0-35.0) pg MCHC 33.1 (31.0-37.0) g/dL RDW 16.3 H (11.5-15.5) % Plt Count 143 L (150-450) k/uL Neutrophils % 55 % Lymphocytes % 35 % Monocytes % 5 % Eosinophils % 2 % Basophils % 1 % Neutrophils # 2.7 (1.3-7.7) k/uL Lymphocytes # 1.7 (1.0-4.8) k/uL Monocytes # 0.2 (0-1.0) k/uL Eosinophils # 0.1 (0-0.7) k/uL Basophils # 0.1 (0-0.2) k/uL Anisocytosis Slight Sodium 140 (137-145) mmol/L Potassium 4.2 (3.5-5.1) mmol/L Chloride 105 (98-107) mmol/L Carbon Dioxide 26 (22-30) mmol/L Anion Gap 9 mmol/L BUN 10 (7-17) mg/dL Creatinine 0.71 (0.52-1.04) mg/dL Est GFR (CKD-EPI)AfAm >90 (>60 ml/min/1.73 sqM) Est GFR (CKD-EPI)NonAf >90 (>60 ml/min/1.73 sqM) Glucose 84 (74-99) mg/dL Calcium 9.6 (8.4-10.2) mg/dL Total Bilirubin 0.5 (0.2-1.3) mg/dL AST 35 (14-36) U/L ALT 24 (9-52) U/L Alkaline Phosphatase 50 (38-126) U/L Total Protein 7.3 (6.3-8.2) g/dL Albumin 4.3 (3.5-5.0) g/dL Amylase 78 (30-110) U/L Lipase 57 (23-300) U/L Urine Color Yellow Urine Appearance Clear (Clear) Urine pH 6.0 (5.0-8.0) Ur Specific [place] 1.018 (1.001-1.035) Urine Protein Negative (Negative) Urine Glucose (UA) Negative (Negative) Urine Ketones Negative (Negative) Urine Blood Negative (Negative) Urine Nitrite Negative (Negative) Urine Bilirubin Negative (Negative) Urine Urobilinogen <2.0 (<2.0) mg/dL Ur Leukocyte Esterase Negative (Negative) - Radiology Data Radiology results: report reviewed Nonspecific abdominal bowel findings. I suggest return and will follow-up with CT with oral contrast opacification of the small rivero bowel of IV contrast. Disposition Clinical Impression: Chronic abdominal pain Disposition: HOME SELF-CARE Condition: Good Instructions (If sedation given, give patient instructions): Abdominal Pain (ED) Additional Instructions: Follow-up with her surgeon. Return to the emergency department if any alarming signs or symptoms occur. Is patient prescribed a controlled substance at d/c from ED?: No Referrals: Alejandra Loco MD [Primary Care Provider] - 1-2 days Baljit Cochran MD [STAFF PHYSICIAN] - 1-2 days Time of Disposition: 23:13
[2018-10-16 21:31] LABS: African American GFR (CKD) >90 (>60 ml/min/1.73 sqM); Albumin 4.3 g/dL (3.5-5.0); Amylase 78 U/L (30-110); Anion Gap 9 mmol/L; Calcium 9.6 mg/dL (8.4-10.2); Carbon Dioxide 26 mmol/L (22-30); Chloride 105 mmol/L (98-107); Glucose 84 mg/dL (74-99); Sodium 140 mmol/L (137-145); Total Bilirubin 0.5 mg/dL (0.2-1.3); Total Protein 7.3 g/dL (6.3-8.2)
[2018-10-16 21:42] LABS: Potassium 4.2 mmol/L (3.5-5.1)
[2018-10-16 21:43] LABS: ALT 24 U/L (9-52); AST 35 U/L (14-36); Alkaline Phosphatase 50 U/L (38-126); Blood Urea Nitrogen 10 mg/dL (7-17)
--- NOTE | 2018-10-16 22:38 | CT ---
EXAMINATION TYPE: CT abdomen pelvis w con DATE OF EXAM: 10/16/2018 COMPARISON: None HISTORY: Pt c/o lower abdominal pain, bloating. Pt had an incisional hernia repaired June 2018 and she states she hasn't felt right since. Hx , cyst removal, heart cath w/ stent. CT DLP: 397.5 mGycm Automated exposure control for dose reduction was used. TECHNIQUE: Helical acquisition of images was performed from the lung bases through the pelvis. CONTRAST: Performed without Oral Contrast and with IV Contrast, patient injected with 100 mL of Isovu e 300. FINDINGS: LUNG BASES: No significant abnormality is appreciated. LIVER/GB: No significant abnormality is appreciated. PANCREAS: No significant abnormality is seen. SPLEEN: No significant abnormality is seen. ADRENALS: No significant abnormality is seen. KIDNEYS: No significant abnormality is seen. FREE AIR: No free air is visualized. RETROPERITONEAL ADENOPATHY: None visualized REPRODUCTIVE ORGANS: There are prominent bilateral adnexal varices present. URINARY BLADDER: No significant abnormality is seen. PELVIC ADENOPATHY: None visualized. OSSEOUS STRUCTURES: No significant abnormality is seen. BOWEL: There is a paucity of adipose throughout the abdomen and pelvis, creating a crowded abdomen a nd pelvis due to the prominent bowel loops throughout the 4 quadrants. The pattern does not appear to represent obstruction. In the left upper quadrant / mid abdomen there is a moderately circumferentially-thickened bowel loop , which appears to be proximal jejunum. The mesentery enteric vasculature is widely patent. The mesentery itself cannot be well-visualized du e to the possibility of adipose throughout the abdomen and pelvis. OTHER: There is no anterior abdominal wall bowel herniation. There is no acute vascular finding. Nonaneurysmal prominent atherosclerotic intimal calcifications no luciano throughout the aortoiliac system. IMPRESSION: Nonspecific abnormal bowel findings; would suggest short interval follow up CT with robus t oral contrast opacification of the small and large bowel w/ IV contrast.
[2018-10-16 22:40] VITALS: BP 122/79; PULSE 53; RESP 17
[2018-10-16] MEDS ORDERED: MORPHINE SULFATE 4 MG/ML SYRINGE IVP STA (23:04)
[2018-10-16] MEDS ORDERED: ACET/COD 300 MG/30 MG STARTER PACK 6 TAB BTL PO STA (23:14)
== END 2018-10-16 23:35 | disposition home or self-care (01) ==
LOC: EC 19:28
DX: G89.29 Other chronic pain (principal); R10.9 Unspecified abdominal pain; R11.0 Nausea; I25.119 Atherosclerotic heart disease of native coronary artery with unspecified angina pectoris; I25.2 Old myocardial infarction; F17.200 Nicotine dependence, unspecified, uncomplicated; Z88.1 Allergy status to other antibiotic agents; Z95.5 Presence of coronary angioplasty implant and graft; Z98.890 Other specified postprocedural states
CPT/HCPCS: 36415; 80053; 82150; 83690; 85025; 81003; 74177; 99284; 96374; 96361; J2270; Q9967

== ENCOUNTER 2018-12-12 20:13 | Observation (INO) | payer OTHER ==
--- NOTE | 2018-12-12 20:38 | ED ---
Chest Pain HPI - General Chief Complaint: Chest Pain Stated Complaint: Chest Pain Time Seen by Provider: 12/12/18 20:15 Source: EMS, RN notes reviewed, old records reviewed Mode of arrival: EMS Limitations: no limitations - History of Present Illness Initial Comments: This is a 58-year-old female the ER for evaluation significant history of heart disease with stent. Patient coming in for severe chest pain started this afternoon. She is persistent smoker. No recent travel history sick contacts. Patient does continue to smoke. She does not take aspirin currently and is on no blood thinners. Pain started this afternoon after playing with her kids began to increase pressure and tightness substernally. No shortness of breath no sweating which were both present on her first heart attack. She did have a stress test which she was about a within the last year but prior to hernia surgery MD Complaint: chest pain (Heaviness substernal) -: hour(s) Onset: during rest, during exertion Pain Location: substernal Pain Radiation: abdomen Severity: moderate Severity scale (1-10): 7 Quality: tightness Consistency: constant Improves With: nothing Worsens With: nothing Anginal Symptoms: nausea, dyspnea (Resolved) Treatments Prior to Arrival: none - Related Data Home Medications Medication Instructions Recorded Confirmed Lidocaine 4% Cream [Lmx 4] 1 applic TOPICAL QID PRN 12/12/18 12/12/18 Allergies Allergy/AdvReac Type Severity Reaction Status Date / Time ampicillin Allergy Unknown Verified 12/12/18 20:54 Childhood Review of Systems ROS Statement: Those systems with pertinent positive or pertinent negative responses have been documented in the HPI. ROS Other: All systems not noted in ROS Statement are negative. EKG Findings - EKG Comments: EKG Findings:: EKG shows bradycardia rate of 46, LA 132, QRS 82, QTc 420 Past Medical History Past Medical History: Coronary Artery Disease (CAD), Chest Pain / Angina, Hyperlipidemia, [place]ocardial Infarction ([place]) Additional Past Medical History / Comment(s): recent admission in May for abdominal pain per pt that radiated up into to chest, she thinks was from hernia, stress test/echo wnl per pt. Last Myocardial Infarction Date:: february 2016 History of Any Multi-Drug Resistant Organisms: None Reported Past Surgical History: Section, Heart Catheterization With Stent Additional Past Surgical History / Comment(s): cyst removal, LAD stent placement, incisional hernia repair, Past Anesthesia/Blood Transfusion Reactions: No Reported Reaction Date of Last Stent Placement:: 02/22/2016 Past Psychological History: No Psychological Hx Reported Smoking Status: Current every day smoker Past Alcohol Use History: None Reported Past Drug Use History: None Reported - Past Family History Father Additional Family Medical History / Comment(s): DAD AT AGE 78, PATIENT WAS VERY YOUNG AT THAT TIME. HISTORY UNKNOWN. Mother Family Medical History: CVA/TIA, Myocardial Infarction ([place]) General Exam Limitations: no limitations General appearance: alert, in no apparent distress Head exam: Present: atraumatic, normocephalic, normal inspection Eye exam: Present: normal appearance, PERRL, EOMI. Absent: scleral icterus, conjunctival injection, periorbital swelling ENT exam: Present: normal exam, mucous membranes moist Neck exam: Present: normal inspection. Absent: tenderness, meningismus, lymphadenopathy Respiratory exam: Present: normal lung sounds bilaterally. Absent: respiratory distress, wheezes, rales, rhonchi, stridor Cardiovascular Exam: Present: normal rhythm, bradycardia, normal heart sounds. Absent: systolic murmur, diastolic murmur, rubs, gallop, clicks GI/Abdominal exam: Present: soft, normal bowel sounds. Absent: distended, tenderness, guarding, rebound, rigid Extremities exam: Present: normal inspection, full ROM, normal capillary refill. Absent: tenderness, pedal edema, joint swelling, calf tenderness Back exam: Present: normal inspection Neurological exam: Present: alert, oriented X3, CN II-XII intact Psychiatric exam: Present: normal affect, normal mood Skin exam: Present: warm, dry, intact, normal color. Absent: rash Course Vital Signs 12/12/18 12/12/18 20:14 21:56 Temperature 98.1 F Pulse Rate 68 50 L Respiratory 17 17 Rate Blood Pressure 121/81 107/73 O2 Sat by Pulse 94 L 100 Oximetry - Reevaluation(s) Reevaluation #1: 12/12/18 22:37 Medical records reviewed Reevaluation #2: 12/12/18 22:37 Still with episodic chest pain - Consultations Consultation #1: Spoke with Dr. Maximo yancey for admission Chest Pain MDM - MDM 58 female the ER with history of LAD stent, patient presented with chest pain. Patient will be admitted for cardiac observation Disposition Clinical Impression: Chest pain Disposition: ADMITTED IP TO THIS HOSP Condition: Undetermined Is patient prescribed a controlled substance at d/c from ED?: No Referrals: Alejandra Loco MD [Primary Care Provider] - 1-2 days
[2018-12-12] MEDS ORDERED: SODIUM CHLORIDE 0.9% 1,000 ML IV STA (20:41)
[2018-12-12 20:55] LABS: Basophils % (A) 1 %; Eosinophils # (A) 0.1 k/uL (0-0.7); Eosinophils % (A) 3 %; HCT 38.1 % (34.0-46.0); Lymphocytes # (A) 1.9 k/uL (1.0-4.8); Lymphocytes % (A) 40 %; MCH 31.2 pg (25.0-35.0); MCHC 34.1 g/dL (31.0-37.0); MCV 91.5 fL (80.0-100.0); Mean Platelet Volume 7.2; Monocytes # (A) 0.3 k/uL (0-1.0); Monocytes % (A) 6 %; Neutrophils # (A) 2.3 k/uL (1.3-7.7); Neutrophils % (A) 49 %; Platelet Count 148 k/uL (150-450); RBC 4.16 m/uL (3.80-5.40); RDW 14.2 % (11.5-15.5); WBC 4.7 k/uL (3.8-10.6)
[2018-12-12 21:04] LABS: ALT 21 U/L (9-52); AST 30 U/L (14-36); African American GFR (CKD) >90 (>60 ml/min/1.73 sqM); Albumin 4.1 g/dL (3.5-5.0); Alkaline Phosphatase 59 U/L (38-126); Anion Gap 7 mmol/L; Blood Urea Nitrogen 14 mg/dL (7-17); Calcium 9.4 mg/dL (8.4-10.2); Carbon Dioxide 26 mmol/L (22-30); Chloride 104 mmol/L (98-107); Glucose 88 mg/dL (74-99); Magnesium 1.9 mg/dL (1.6-2.3); Non-African American GFR(CKD) 89 (>60 ml/min/1.73 sqM); Potassium 4.1 mmol/L (3.5-5.1); Sodium 137 mmol/L (137-145); Total Bilirubin 0.3 mg/dL (0.2-1.3); Total Protein 7.1 g/dL (6.3-8.2)
[2018-12-12 21:05] LABS: INR 0.9 (<1.2); Partial Thromboplastin Time 24.9 sec (22.0-30.0); Prothrombin Time 10.1 sec (9.0-12.0)
--- NOTE | 2018-12-12 21:33 | XR ---
EXAMINATION TYPE: XR chest 2V DATE OF EXAM: 12/12/2018 COMPARISON: 05/29/2018 HISTORY: Chest pain TECHNIQUE: Frontal and lateral views of the chest are obtained. FINDINGS: There is no heart failure nor confluent pneumonic infiltrate. Costophrenic angles are belkys r. There is pulmonary hyperinflation. Bony thorax is intact IMPRESSION: COPD. No acute lung disease. No change. Normal heart.
[2018-12-12] MEDS ORDERED: NITROGLYCERIN SL TABS 0.4 MG TAB SUBLINGUAL PRN (22:36)
[2018-12-12] MEDS ORDERED: ASPIRIN 81 MG PO STA (22:36)
[2018-12-12] MEDS ORDERED: HEPARIN SODIUM,PORCINE 5,000 UNIT/ML 1 ML VIAL IV PRN (22:36)
[2018-12-12] MEDS ORDERED: HEPARIN SODIUM,PORCINE 5,000 UNIT/ML 1 ML VIAL IV ONE (22:36)
[2018-12-12] MEDS ORDERED: SODIUM CHLORIDE 0.9% 1,000 ML IV SCH (22:45)
[2018-12-12] MEDS ORDERED: HEPARIN SOD,PORK IN 0.45% NACL 25,000 UNIT in 0.45% NACL 1 250ML.BAG IV SCH (22:45)
[2018-12-13 05:56] LABS: Mean Platelet Volume 6.7; Platelet Count 137 k/uL (150-450)
[2018-12-13 06:10] LABS: Cholesterol 200 mg/dL (<200); HDL Cholesterol 78 mg/dL (40-60); LDL Cholesterol,Calculated 106 mg/dL (0-99); Triglycerides 79 mg/dL (<150)
[2018-12-13 07:43] VITALS: BP 104/68; PULSE 55; RESP 18; TEMP 98.2
[2018-12-13] MEDS ORDERED: ASPIRIN 325 MG TAB PO SCH (09:00)
[2018-12-13] MEDS ORDERED: ASPIRIN 81 MG PO SCH (09:00)
[2018-12-13 11:29] LABS: T4, Free (Free Thyroxine) 1.32 ng/dL (0.78-2.19)
[2018-12-13] MEDS ORDERED: ATORVASTATIN 40 MG TAB PO SCH (21:00)
--- NOTE | 2018-12-19 11:12 | HP ---
HISTORY AND PHYSICAL COMBINATION HISTORY AND PHYSICAL AND DISCHARGE SUMMARY: CHIEF COMPLAINT: Chest pain. HISTORY OF PRESENT ILLNESS: This 58-year-old woman was admitted with chest pain, but however the patient left the hospital against medical advice from the ER itself before being seen. The prognosis is extremely guarded. Please refer to the ER physician notes and staff, notes for further information. FINAL DIAGNOSIS: Chest pain for evaluation. MMODL / IJN: [id number] /
--- NOTE | 2018-12-24 00:06 | P.HPIM ---
History of Present Illness H&P Date: 12/13/18 Chief Complaint: chest pain Patient is a 58-year-old female with a known history of coronary artery disease with history of stent placement, hypertension, hyperlipidemia, history of incisional hernia repair, anxiety/depression and ongoing deconditioning came to be out of the complaints of substernal chest heaviness which occurred during the rest. Pain with radiation to the abdomen and about 7 out of 10 in severity. Pressure-like tightness in the chest. No aggravating or relieving factors. Associated nausea and shortness of breath but resolved now. No diaphoresis. No headache or dizziness or lightheadedness. Patient denied any complaints of fever or chills. No cough or sputum production. Pain started yesterday afternoon after playing with her kids. No recent travel or sick contacts. Patient had this test is done with the year prior to have hernia repair surgery. Patient continues to smoke on a daily basis otherwise. EKG showed sinus bradycardia Chest x-ray showed no acute cardiopulmonary process Review of Systems Constitutional: Patient denies any fever or chills . No generalized weakness or weight loss. Abdomen: Patient does have nausea. No vomiting. Right upper quadrant abdominal pain and back pain.. Cardiovascular: Patient denies any chest pain or short of breath no p alpitations. Respiratory: patient denied any cough is from production. No shortness of breath Neurologic: Patient denied any numbness or tingling headache. Musculoskeletal: Patient denies any complaints of joint swelling or deformity. Skin: Negative Psychiatric: Negative Endocrine: No heat or cold intolerance. No recent weight gain. Genitourinary: No dysuria or hematuria. All other 14 point ROS negative except the above Past Medical History Past Medical History: Coronary Artery Disease (CAD), Chest Pain / Angina, Hyperlipidemia, Myocardial Infarction ([place]) Additional Past Medical History / Comment(s): recent admission in May for abdominal pain per pt that radiated up into to chest, she thinks was from hernia, stress test/echo wnl per pt. Last Myocardial Infarction Date:: february 2016 History of Any Multi-Drug Resistant Organisms: None Reported Past Surgical History: Section, Heart Catheterization With Stent Additional Past Surgical History / Comment(s): cyst removal, LAD stent placement, incisional hernia repair, Past Anesthesia/Blood Transfusion Reactions: No Reported Reaction Date of Last Stent Placement:: 02/22/2016 Past Psychological History: Anxiety, Depression Smoking Status: Current every day smoker Past Alcohol Use History: None Reported Additional Past Alcohol Use History / Comment(s): 1ppd 40 yrs. Past Drug Use History: None Reported - Past Family History Father Additional Family Medical History / Comment(s): DAD AT AGE 78, PATIENT WAS VERY YOUNG AT THAT TIME. HISTORY UNKNOWN. Mother Family Medical History: CVA/TIA, Myocardial Infarction ([place]) Medications and Allergies Home Medications Medication Instructions Recorded Confirmed Type Lidocaine 4% Cream [Lmx 4] 1 applic TOPICAL QID PRN 12/12/18 12/12/18 History Allergies Allergy/AdvReac Type Severity Reaction Status Date / Time ampicillin Allergy Unknown Verified 12/12/18 20:54 Childhood Physical Exam Vitals: Vital Signs Temp Pulse Pulse Resp BP BP Pulse Ox 12/13/18 07:41 98.2 F 55 L 18 104/68 99 12/13/18 06:09 52 H 12/13/18 04:00 97.7 F 43 L 18 102/61 99 12/13/18 03:40 57 L 18 12/13/18 00:21 97.7 F 45 L 18 117/60 100 12/12/18 22:57 97.8 F 51 L 17 112/73 99 12/12/18 21:56 50 L 17 107/73 100 12/12/18 20:14 98.1 F 68 17 121/81 94 L Intake and Output 12/12/18 12/13/18 12/13/18 22:59 06:59 14:59 Intake Total 39.145 Balance 39.145 Intake: Intake, IV Titration 39.145 Amount Heparin Sod,Pork in 0.45% 39.145 NaCl 25,000 unit In 0.45 % NaCl 1 250ml.bag @ 12 UNITS/KG/HR 5.117 mls/hr IV .Q24H [facility] Rx#: [id number] Other: # Voids 1 Weight 42.638 kg PHYSICAL EXAMINATION: Patient is lying in the bed comfortably, no acute distress, awake alert and oriented.. HEENT: Normocephalic. Neck is supple. Pupils reactive. Nostrils clear. Oral cavity is moist. Ears reveal no drainage. Neck reveals no JVD, carotid bruits, or thyromegaly. CHEST EXAMINATION: Trachea is central. Symmetrical expansion. Lung ramos clear to auscultation and percussion. CARDIAC: Normal S1, S2 with no gallops. No murmurs ABDOMEN: Soft. Bowel sounds normal. No organomegaly. No abdominal bruits. Extremities: reveal no edema. No clubbing or cyanosis Neurologically awake, alert, oriented x3 with well-coordinated movements. No focal deficits noted Skin: No rash or skin lesions. Psychiatric: Coperative. Nonsuicidal Musculoskeletal: No joint swelling or deformity. Normal range of motion. Results CBC & Chem 7: 12/13/18 05:26 12/12/18 20:24 Labs: Abnormal Lab Results - Last 24 Hours (Table) 12/12/18 12/13/18 12/13/18 Range/Units 20:24 05:26 05:26 Plt Count 148 L 137 L (150-450) k/uL APTT (22.0-30.0) sec Cholesterol 200 H (<200) mg/dL LDL Cholesterol, Calc 106 H (0-99) mg/dL HDL Cholesterol 78 H (40-60) mg/dL 12/13/18 Range/Units 05:26 Plt Count (150-450) k/uL APTT 32.0 H (22.0-30.0) sec Cholesterol (<200) mg/dL LDL Cholesterol, Calc (0-99) mg/dL HDL Cholesterol (40-60) mg/dL Thrombosis Risk Factor Assmnt - DVT/VTE Prophylaxis DVT/VTE Prophylaxis: Pharmacologic Prophylaxis ordered - Choose All That Apply Any of the Below Risk Factors Present?: No Each Risk Factor Represents 2 Points: Age 61-74 years Thrombosis Risk Factor Assessment Total Risk Factor Score: 2 Thrombosis Risk Factor Assessment Level: Low Risk Assessment and Plan Assessment: Chest pain. Rule out ACS. History of coronary disease status post stent placement Hyperlipidemia Elevated TSH level but free T4 level is within normal limits. Anxiety/depression Ongoing liquid and addiction History of incisional hernia repair Hyperlipidemia Plan: Patient will be started on telemetry monitoring. Serial troponin x3-. Cardiology recommends no aberrant at this time. Continue the home medications and follow-up closely. Pain management. Possible discharge with final cardiology recommendations Time with Patient: Greater than 30
--- NOTE | 2018-12-24 00:08 | P.DS ---
Providers Date of admission: 12/12/18 22:36 Expected date of discharge: 12/13/18 Attending physician: Wilian Marsh Consults: 12/12/18 22:36 Consult Physician Urgent Consulting Provider: Kaur Leger Consult Reason/Comments: cp Do you want consulting provider notified?: Yes Primary care physician: Beronica Roberts [facility] Course: Discharge diagnosis and hospital course Chest pain. Ruled out ACS. History of coronary disease status post stent placement Hyperlipidemia Elevated TSH level but free T4 level is within normal limits. Anxiety/depression Ongoing liquid and addiction History of incisional hernia repair Hyperlipidemia Patient was started on telemetry monitoring. Serial troponin x3-. Cardiology recommends no interventions at this time. Continue the home medications and follow-up closely. Pain management. Possible discharge with final cardiology recommendations. Pt. left AMA Patient Condition at Discharge: Undetermined Plan - Discharge Summary Discharge Rx Participant: No New Discharge Prescriptions: No Action Lidocaine 4% Cream [Lmx 4] 1 applic TOPICAL QID PRN PRN Reason: abdominal pain Discharge Medication List Lidocaine 4% Cream [Lmx 4] 1 applic TOPICAL QID PRN 12/12/18 [History] Follow up Appointment(s)/Referral(s): Alejandra Loco MD [Primary Care Provider] - 1-2 days Discharge Disposition: Left Against Medical Advice
== END 2018-12-13 10:20 | disposition left against medical advice (07) ==
LOC: EC 20:13 → 1SOBS 22:36
PROVIDERS: ADMIT Hospitalist; ATTEND Hospitalist
DX: R07.9 Chest pain, unspecified (principal); R11.0 Nausea; R06.02 Shortness of breath; I25.10 Atherosclerotic heart disease of native coronary artery without angina pectoris; E78.5 Hyperlipidemia, unspecified; R00.1 Bradycardia, unspecified; I10 Essential (primary) hypertension; F32.9 Major depressive disorder, single episode, unspecified; F41.9 Anxiety disorder, unspecified; R53.81 Other malaise; R94.6 Abnormal results of thyroid function studies; F17.210 Nicotine dependence, cigarettes, uncomplicated; Z88.0 Allergy status to penicillin; I25.2 Old myocardial infarction; Z95.5 Presence of coronary angioplasty implant and graft; Z82.49 Family history of ischemic heart disease and other diseases of the circulatory system; Z82.3 Family history of stroke; Z53.29 Procedure and treatment not carried out because of patient's decision for other reasons
CPT/HCPCS: 93005 ×2; 96366; 96361; 96365; 99285; 36415; 84439; 83880; 80061; 80053; 84443; 83690; 83735; 84484 ×2; 85025; 85049; 85610; 85730 ×2; 71046; G0378 ×2; J1644 ×3

== ENCOUNTER → 2019-10-09 | Outpatient (CLI) | payer OTHER ==
[2019-10-09 10:46] LABS: HCT 45.1 % (34.0-46.0); HGB 14.2 gm/dL (11.4-16.0); MCHC 31.5 g/dL (31.0-37.0); Mean Platelet Volume 7.8; Platelet Count 154 k/uL (150-450); RBC 4.75 m/uL (3.80-5.40); RDW 13.4 % (11.5-15.5); WBC 6.1 k/uL (3.8-10.6)
[2019-10-09 18:08] LABS: African American GFR (CKD) 95.5 (60.0-200.0); Albumin 4.5 g/dL (3.80-4.90); Albumin/Globulin Ratio 1.88 (1.60-3.17); Anion Gap 7.4 mmol/L (4.00-12.00); BUN/Creat Ratio 16.25 Ratio (12.00-20.00); Calcium 9.4 mg/dL (8.7-10.3); Carbon Dioxide 27.6 mmol/L (21.6-31.8); Globulin 2.4 g/dL (1.6-3.3); Non-African American GFR(CKD) 82.4 (60.0-200.0); Potassium 4.5 mmol/L (3.5-5.5); Total Bilirubin 0.3 mg/dL (0.2-1.2); Total Protein 6.9 g/dL (6.2-8.2)
[2019-10-09 18:16] LABS: T4, Free (Free Thyroxine) 1.1 ng/dL (0.80-1.80)
== END | disposition home or self-care (01) ==
LOC: LABWHC1 09:35
PROVIDERS: ATTEND Internal Medicine
DX: R53.83 Other fatigue (principal)
CPT/HCPCS: 36415; 80053; 82306; 82607; 84439; 84443; 85027

== ENCOUNTER → 2019-10-09 | Outpatient (CLI) | payer OTHER ==
--- NOTE | 2019-10-09 11:17 | US ---
EXAMINATION TYPE: US abdomen complete DATE OF EXAM: 10/09/2019 COMPARISON: CT 10/16/2018 CLINICAL HISTORY: R10.9 abd/pelvic pain. EXAM MEASUREMENTS: Liver Length: 14.8 cm Gallbladder Wall: 0.2 cm CBD: 0.3 cm Spleen: 8.3 cm Right Kidney: 10.2 x 3.8 x 4.1 cm Left Kidney: 10.0 x 4.6 x 4.1 cm Pancreas: Obscured by bowel gas Liver: wnl Gallbladder: wnl Evidence for sonographic Cha's sign: No CBD: wnl Spleen: wnl Right Kidney: Mild prominence of renal pelvis Left Kidney: No hydronephrosis or masses seen Upper IVC: wnl Abd Aorta: Atherosclerotic changes visualized IMPRESSION: Mild prominence right renal pelvis. Otherwise unremarkable study.
--- NOTE | 2019-10-09 11:31 | US ---
EXAMINATION TYPE: US pelvis complete transvag DATE OF EXAM: 10/09/2019 COMPARISON: CT 10/16/2018 CLINICAL HISTORY: R10.9 abd/pelvic pain. TECHNIQUE: . Transabdominal sonographic images of the pelvis were acquired. Transvaginal sonographi c images were medically necessary to better assess the following anatomy: Uterus and ovaries Date of LMP: Years ago EXAM MEASUREMENTS: Uterus: 5.7 x 2.8 x 3.3 cm Endometrial Stripe: 0.2 cm Right Ovary: 2.6 x 1.6 x 1.1 cm Left Ovary: 2.3 x 1.0 x 1.1 cm 1. Uterus: Anteverted Heterogeneous. Two possible fibroids visualized, largest measuring 0.9 x 0.7 x 1.1 cm 2. Endometrium: Small amount of fluid visualized within 3. Right Ovary: wnl 4. Left Ovary: wnl 5. Bilateral Adnexa: Prominent vessels visualized left adnexa 6. Posterior cul-de-sac: wnl IMPRESSION: Small leiomyomatous change of the uterus. Small amount of free fluid within the endometrial canal.
== END | disposition home or self-care (01) ==
LOC: RADUSWWP 08:35
PROVIDERS: ATTEND Internal Medicine
DX: D39.0 Neoplasm of uncertain behavior of uterus (principal); Z88.1 Allergy status to other antibiotic agents
CPT/HCPCS: 76700; 76830; 76856

== ENCOUNTER 2019-11-19 13:03 | Observation (INO) | payer OTHER ==
[2019-11-19] MEDS ORDERED: MECLIZINE 12.5 MG TAB PO STA (13:42)
[2019-11-19] MEDS ORDERED: SODIUM CHLORIDE 0.9% 1,000 ML IV STA (13:42)
[2019-11-19] MEDS ORDERED: ONDANSETRON 4 MG/2 ML VIAL IVP STA (13:50)
[2019-11-19 13:59] LABS: Basophils # (A) 0.1 k/uL (0-0.2); Basophils % (A) 1 %; Eosinophils # (A) 0.1 k/uL (0-0.7); Eosinophils % (A) 2 %; HCT 40.9 % (34.0-46.0); HGB 13.4 gm/dL (11.4-16.0); Lymphocytes # (A) 1.4 k/uL (1.0-4.8); Lymphocytes % (A) 28 %; MCH 30.3 pg (25.0-35.0); MCHC 32.8 g/dL (31.0-37.0); MCV 92.4 fL (80.0-100.0); Mean Platelet Volume 7.5; Monocytes # (A) 0.2 k/uL (0-1.0); Monocytes % (A) 5 %; Neutrophils # (A) 3.1 k/uL (1.3-7.7); Neutrophils % (A) 63 %; Platelet Count 133 k/uL (150-450); RBC 4.43 m/uL (3.80-5.40); RDW 13.2 % (11.5-15.5); WBC 4.9 k/uL (3.8-10.6)
[2019-11-19 14:13] LABS: INR 0.9 (<1.2); Prothrombin Time 9.8 sec (9.0-12.0)
[2019-11-19 14:17] LABS: Albumin 4.2 g/dL (3.5-5.0); Calcium 9.4 mg/dL (8.4-10.2); Potassium 3.9 mmol/L (3.5-5.1); Total Bilirubin 0.4 mg/dL (0.2-1.3); Total Protein 6.9 g/dL (6.3-8.2)
--- NOTE | 2019-11-19 14:24 | XR ---
EXAMINATION TYPE: XR chest 2V DATE OF EXAM: 11/19/2019 COMPARISON: 12/12/2018 TECHNIQUE: PA and lateral views submitted. HISTORY: Weakness FINDINGS: The lungs are clear and there is no pneumothorax, pleural effusion, or focal pneumonia. Mild hypert rophic degenerative change spine. IMPRESSION: 1. No acute process.
--- NOTE | 2019-11-19 14:37 | CT ---
EXAMINATION TYPE: CT brain wo con DATE OF EXAM: 11/19/2019 COMPARISON: None INDICATION: headache, dizzy DLP: 1099.4 mGycm, Automated exposure control for dose reduction was used. CONTRAST: None CT of the brain is performed utilizing 3 mm thick sections through the posterior fossa and 3 mm thick sections through the remaining calvarium. Study is performed within 24 hours of arrival to the hosp [facility]. No abnormal hyperdensity is present to suggest an acute intracranial hemorrhage. No mass lesion is evident. No acute infarcts are evident. Ventricles and sulci are appropriate for the patient age. Paranasal sinuses and mastoid air cells within the [id number] are clear. IMPRESSIONS: 1. No acute intracranial process.
--- NOTE | 2019-11-19 15:07 | ED ---
Dizziness HPI - General Chief Complaint: Dizziness Stated Complaint: Dizziness Time Seen by Provider: 11/19/19 13:15 Source: patient Mode of arrival: wheelchair Limitations: no limitations - History of Present Illness Initial Comments: 59-year-old female with past medical history of coronary artery disease who presents emergency department after she had a syncopal episode on Monday. Patient reports that for the past several days she has felt very lightheaded and vertiginous. Reports that symptoms are worse with head movement and when she stands. Her symptoms were so significant on Monday that she ended up passing out. caught her before she fell and lowered her to the ground. Reports that she was unconscious for approximately 10 minutes. There was no seizure- like activity. No loss of bowel or bladder function. The patient reports that she continues to feel lightheaded and dizzy. Admits to mild headache. No visual changes. Denies history of similar symptoms in the past. No associated chest pain or shortness of breath. No abdominal pain. No melenic stools or hematochezia. Denies changes in her urination. Does have a cardiac history with one stent placement. Denies fevers or chills. No other alleviating, precipitating or modifying factors - Related Data Previous Rx's Medication Instructions Recorded Aspirin 81 mg PO DAILY #30 chew 11/20/19 Atorvastatin Calcium [Lipitor] 10 mg PO DAILY #30 tab 11/20/19 Meclizine [Antivert] 12.5 mg PO TID #30 tab 11/20/19 Allergies Allergy/AdvReac Type Severity Reaction Status Date / Time ampicillin Allergy Unknown Verified 11/19/19 15:16 Childhood Review of Systems ROS Statement: Those systems with pertinent positive or pertinent negative responses have been documented in the HPI. ROS Other: All systems not noted in ROS Statement are negative. Past Medical History Past Medical History: Coronary Artery Disease (CAD), Chest Pain / Angina, Hyperlipidemia, Myocardial Infarction ([place]) Additional Past Medical History / Comment(s): recent admission in May for abdominal pain per pt that radiated up into to chest, she thinks was from hernia, stress test/echo wnl per pt. Last Myocardial Infarction Date:: february 2016 History of Any Multi-Drug Resistant Organisms: None Reported Past Surgical History: Section, Heart Catheterization With Stent Additional Past Surgical History / Comment(s): cyst removal, LAD stent placement, incisional hernia repair, Past Anesthesia/Blood Transfusion Reactions: No Reported Reaction Date of Last Stent Placement:: 02/22/2016 Past Psychological History: Anxiety, Depression Past Alcohol Use History: None Reported Past Drug Use History: None Reported - Past Family History Father Additional Family Medical History / Comment(s): DAD AT AGE 78, PATIENT WAS VERY YOUNG AT THAT TIME. HISTORY UNKNOWN. Mother Family Medical History: CVA/TIA, Myocardial Infarction ([place]) General Exam Limitations: no limitations General appearance: alert, in no apparent distress Head exam: Present: atraumatic, normocephalic, normal inspection Eye exam: Present: normal appearance, PERRL, EOMI, nystagmus (rightward nystagmus). Absent: scleral icterus, conjunctival injection, periorbital swelling ENT exam: Present: normal exam, mucous membranes moist Neck exam: Present: normal inspection. Absent: tenderness, meningismus, lymphad enopathy Respiratory exam: Present: normal lung sounds bilaterally. Absent: respiratory distress, wheezes, rales, rhonchi, stridor Cardiovascular Exam: Present: regular rate, normal rhythm, normal heart sounds. Absent: systolic murmur, diastolic murmur, rubs, gallop, clicks GI/Abdominal exam: Present: soft, normal bowel sounds. Absent: distended, tenderness, guarding, rebound, rigid Extremities exam: Present: normal inspection, full ROM, normal capillary refill. Absent: tenderness, pedal edema, joint swelling, calf tenderness Back exam: Present: normal inspection Neurological exam: Present: alert, oriented X3, CN II-XII intact Psychiatric exam: Present: normal affect, normal mood Skin exam: Present: warm, dry, intact, normal color. Absent: rash Course Vital Signs 11/19/19 11/19/19 11/19/19 13:13 15:05 15:45 Temperature 98.4 F Pulse Rate 70 58 L Respiratory 16 16 Rate Blood Pressure 132/80 134/79 Blood Pressure 101/60 [Right Arm Sitting] Blood Pressure 106/67 [Right Arm Standing] Blood Pressure 104/65 [Right Arm Supine] O2 Sat by Pulse 99 99 Oximetry 11/19/19 17:02 Temperature Pulse Rate 55 L Respiratory 18 Rate Blood Pressure 119/83 Blood Pressure [Right Arm Sitting] Blood Pressure [Right Arm Standing] Blood Pressure [Right Arm Supine] O2 Sat by Pulse 98 Oximetry EKG Findings - EKG Comments: EKG Findings:: EKG demonstrates normal sinus rhythm with a ventricular rate of 66. WI interval 134. QRS 90. QTC of 438. No acute ST segment elevations. ST depression in leads V3 through V5 Medical Decision Making - Medical Decision Making Upon arrival patient is placed into room Hallway 4. A thorough history and physical exam was performed. Orthostatics were performed. Peripheral IV was established. Laboratory studies were conducted patient was given a liter bolus of normal saline followed by 75 mL per hour. 12-lead EKG was performed. Patient went for a CT of her head is she is reporting to vertiginous symptoms. Chest x-ray was also performed. Laboratory studies remarkable for a platelet count of 133. Troponin is negative. CT of the brain demonstrates no acute intracranial process. Chest x-ray demonstrates no acute process. Discuss results with the patient. I did recommend hospital admission for her syncopal episode. Patient agreed to this. Discussed case with Dr. Marsh accepted admission. Patient is currently awaiting a bed on the floor. - Lab Data Result diagrams: 11/20/19 08:26 11/20/19 08:26 Lab Results 11/19/19 11/19/19 11/19/19 Range/Units 13:51 13:51 13:51 WBC 4.9 (3.8-10.6) k/uL RBC 4.43 (3.80-5.40) m/uL Hgb 13.4 (11.4-16.0) gm/dL Hct 40.9 (34.0-46.0) % MCV 92.4 (80.0-100.0) fL MCH 30.3 (25.0-35.0) pg MCHC 32.8 (31.0-37.0) g/dL RDW 13.2 (11.5-15.5) % Plt Count 133 L (150-450) k/uL Neutrophils % 63 % Lymphocytes % 28 % Monocytes % 5 % Eosinophils % 2 % Basophils % 1 % Neutrophils # 3.1 (1.3-7.7) k/uL Lymphocytes # 1.4 (1.0-4.8) k/uL Monocytes # 0.2 (0-1.0) k/uL Eosinophils # 0.1 (0-0.7) k/uL Basophils # 0.1 (0-0.2) k/uL PT 9.8 (9.0-12.0) sec INR 0.9 (<1.2) Sodium (137-145) mmol/L Potassium (3.5-5.1) mmol/L Chloride (98-107) mmol/L Carbon Dioxide (22-30) mmol/L Anion Gap mmol/L BUN (7-17) mg/dL Creatinine (0.52-1.04) mg/dL Est GFR (CKD-EPI)AfAm (>60 ml/min/1.73 sqM) Est GFR (CKD-EPI)NonAf (>60 ml/min/1.73 sqM) Glucose (74-99) mg/dL Calcium (8.4-10.2) mg/dL Total Bilirubin (0.2-1.3) mg/dL AST (14-36) U/L ALT (4-34) U/L Alkaline Phosphatase (38-126) U/L Troponin I (0.000-0.034) ng/mL Total Protein (6.3-8.2) g/dL Albumin (3.5-5.0) g/dL Urine Color Colorless Urine Appearance Clear (Clear) Urine pH 6.0 (5.0-8.0) Ur Specific [place] 1.003 (1.001-1.035) Urine Protein Negative (Negative) Urine Glucose (UA) Negative (Negative) Urine Ketones Negative (Negative) Urine Blood Negative (Negative) Urine Nitrite Negative (Negative) Urine Bilirubin Negative (Negative) Urine Urobilinogen <2.0 (<2.0) mg/dL Ur Leukocyte Esterase Negative (Negative) 11/19/19 11/19/19 Range/Units 13:51 13:51 WBC (3.8-10.6) k/uL RBC (3.80-5.40) m/uL Hgb (11.4-16.0) gm/dL Hct (34.0-46.0) % MCV (80.0-100.0) fL MCH (25.0-35.0) pg MCHC (31.0-37.0) g/dL RDW (11.5-15.5) % Plt Count (150-450) k/uL Neutrophils % % Lymphocytes % % Monocytes % % Eosinophils % % Basophils % % Neutrophils # (1.3-7.7) k/uL Lymphocytes # (1.0-4.8) k/uL Monocytes # (0-1.0) k/uL Eosinophils # (0-0.7) k/uL Basophils # (0-0.2) k/uL PT (9.0-12.0) sec INR (<1.2) Sodium 136 L (137-145) mmol/L Potassium 3.9 (3.5-5.1) mmol/L Chloride 100 (98-107) mmol/L Carbon Dioxide 30 (22-30) mmol/L Anion Gap 6 mmol/L BUN 10 (7-17) mg/dL Creatinine 0.88 (0.52-1.04) mg/dL Est GFR (CKD-EPI)AfAm 85 (>60 ml/min/1.73 sqM) Est GFR (CKD-EPI)NonAf 74 (>60 ml/min/1.73 sqM) Glucose 112 H (74-99) mg/dL Calcium 9.4 (8.4-10.2) mg/dL Total Bilirubin 0.4 (0.2-1.3) mg/dL AST 26 (14-36) U/L ALT 14 (4-34) U/L Alkaline Phosphatase 53 (38-126) U/L Troponin I <0.012 (0.000-0.034) ng/mL Total Protein 6.9 (6.3-8.2) g/dL Albumin 4.2 (3.5-5.0) g/dL Urine Color Urine Appearance (Clear) Urine pH (5.0-8.0) Ur Specific [place] (1.001-1.035) Urine Protein (Negative) Urine Glucose (UA) (Negative) Urine Ketones (Negative) Urine Blood (Negative) Urine Nitrite (Negative) Urine Bilirubin (Negative) Urine Urobilinogen (<2.0) mg/dL Ur Leukocyte Esterase (Negative) Disposition Clinical Impression: Syncope Disposition: [facility]MITT[facility] Condition: Stable Is patient prescribed a controlled substance at d/c from ED?: No Decision to Admit Reason: Admit from EC Decision Date: 11/19/19 Decision Time: 15:07
[2019-11-19] MEDS ORDERED: NALOXONE 0.4 MG/ML 1 ML VIAL IV PRN (15:13)
[2019-11-19 16:09] LABS: Appearance,Urine Clear (Clear); Bilirubin,Urine Negative (Negative); Blood,Urine Negative (Negative); Color,Urine Colorless; Glucose,Urine (UA) Negative (Negative); Ketones,Urine Negative (Negative); Leukocyte Esterase,Urine Negative (Negative); Nitrite,Urine Negative (Negative); Protein,Urine Negative (Negative); Specific Gravity,Urine 1.003 (1.001-1.035); Urobilinogen,Urine <2.0 mg/dL (<2.0)
[2019-11-19] MEDS ORDERED: HYDROcodone/APAP 5-325MG 1 EACH TAB PO STA (16:44)
[2019-11-19 20:10] LABS: Cholesterol 193 mg/dL (<200); HDL Cholesterol 63 mg/dL (40-60); LDL Cholesterol,Calculated 93 mg/dL (0-99); Triglycerides 186 mg/dL (<150)
[2019-11-19] MEDS ORDERED: MECLIZINE 12.5 MG TAB PO PRN (21:08)
[2019-11-19] MEDS: SODIUM CHLORIDE 0.9% 1,000 ML IV SCH (22:53)
--- NOTE | 2019-11-19 23:07 | HP ---
HISTORY AND PHYSICAL CHIEF COMPLAINTS: Dizziness and syncope. HISTORY OF PRESENT ILLNESS: This 59-year-old woman with a past medical history of CAD, hyperlipidemia, history of myocardial infarction, history of section, CAD, stent, being followed by Dr. Loco in the outpatient setting, was not feeling well over the past several days. The patient was increasingly dizzy and vertiginous. Last Monday had a syncopal episode. The patient passed out. The patient's caught her before falling to the ground and the patient was unconscious for approximately 10 minutes. Currently patient had dizziness and the patient came to [facility] and was admitted for evaluation and treatment. The basic evaluations showed thrombocytopenia, triglyceride of 186. There were no orthostatic changes. Bradycardia was noted. There is no history of any fever, rigor or chills. No history of headache at this time. PAST MEDICAL HISTORY: History of CAD, stent, history of hyperlipidemia, history of myocardial infarction, history of recent abdominal pain. MEDICATIONS: None. ALLERGIES: AMPICILLIN. FAMILY HISTORY: History of CVA, TIA, myocardial infarction. SOCIAL HISTORY: History of smoking. No history of alcohol. REVIEW OF SYSTEMS: ENT: No diminished hearing. No diminished vision. Otherwise as mentioned earlier. CARDIOVASCULAR SYSTEM: No angina, palpitations. RESPIRATORY SYSTEM: No cough, hemoptysis. GI: No nausea, vomiting, diarrhea. : No dysuria or retention. NERVOUS SYSTEM: No numbness, weakness. ALLERGY/IMMUNOLOGY: No asthma, hayfever. MUSCULOSKELETAL: As mentioned earlier. HEMATOLOGY/ONCOLOGY: No history of anemia. ENDOCRINE: No history of diabetes, hypothyroidism. CONSTITUTIONAL: As mentioned earlier. DERMATOLOGY: Negative. RHEUMATOLOGY: Negative. PSYCHIATRY: As mentioned earlier. PHYSICAL EXAMINATION: Patient alert and oriented x3. Pulse 55, blood pressure 119/83, respiration 18, temperature 98.4, pulse ox 98% on room air. HEENT: Conjunctivae normal. Oral mucosa moist. NECK: No jugular venous distention. No carotid bruit. No lymph node enlargement. CARDIOVASCULAR SYSTEM: S1, S2 muffled. RESPIRATORY SYSTEM: Breath sounds diminished at the bases. A few scattered rhonchi and crackles. ABDOMEN: Soft, non-tender. No mass palpable. LEGS: No edema. No swelling. NERVOUS SYSTEM: Higher functions as mentioned earlier. Moves all 4 limbs. No focal motor or sensory deficit. LYMPHATICS: No lymph node palpable in neck, axillae or groin. SKIN: No ulcer, rash, bleeding. JOINTS: No active deforming arthropathy. LABS: CBC within normal limits. WBC 4.9. Hemoglobin 13.4, platelets 133. Sodium 136. Triglycerides 186. ASSESSMENT: 1. Syncope for evaluation. Rule out orthostatic hypotension. Rule out cardiogenic syncope. 2. Mild thrombocytopenia. 3. Hyponatremia, mild. 4. History of coronary artery disease. 5. History of myocardial infarction. 6. History of LAD stent. 7. History of anxiety, depression. 8. Continued ongoing nicotine dependence. RECOMMENDATIONS AND DISCUSSION: In this 59-year-old woman who presented with multiple complex medical issues, we will monitor the patient closely, continue the current medications, continue symptomatic treatment. I would recommend cardiology and neurology evaluations, full cardiovascular workup. DVT prophylaxis. Also recommend a D-dimer which is 0.41. Otherwise, continue to monitor. Orthostatic vitals. Prognosis guarded because of multiple complex medical issues. Further recommendations to follow. A copy of this dictation is being forwarded to Dr. Loco, who is the primary physician. MMODL / IJN: [id number] /
--- NOTE | 2019-11-20 00:36 | CONS ---
CONSULTATION Daniela is a 59-year-old lady with history of coronary artery disease status post angioplasty of mid LAD in February of 2016 who used to follow with my associate, Dr. Leger regularly but has not seen him in the last 2 years. Has not been taking any medications. Comes in primarily complaining of dizziness. The patient apparently had a syncopal event on Monday when she was standing, suddenly passed out. Her held her. Today again, she was feeling dizzy and near syncopal, hence decided to come to the hospital. At the time of my evaluation, she appears comfortable at rest and is free of symptoms. Remains in sinus rhythm. Hemodynamically stable. Her 1st set of troponin is negative. Hemoglobin is normal at 13.4. Potassium is 3.9. EKG shows sinus rhythm with ST-T wave changes from V1 to V3 that are new compared to an old EKG. PAST MEDICAL HISTORY: Past medical history significant for coronary artery disease status post angioplasty. There is no history of hypertension, diabetes, dyslipidemia. MEDICATIONS: Medications are none. ALLERGIES: None. FAMILY HISTORY: Negative for premature coronary artery disease. SOCIAL HISTORY: Significant for smoking. There is no history of EtOH abuse or drug abuse. REVIEW OF SYSTEMS: HEENT is unremarkable. Cardiac as described above. Respiratory as described above. GI negative. Genitourinary negative. Allergy/Immunology: Negative. Skin negative. Musculoskeletal negative. Endocrine negative. Derm negative. Constitutional negative. Oncological negative. 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 Rest of the system review is not relevant. EXAM: She is comfortable at rest. Vital signs are stable. There is no jugular venous distention. Carotid upstroke is diminished. There is no bruit. Chest exam reveals good air entry. Bilaterally heart exam reveals first and second heart sounds. No gallop. Abdomen is soft. Exam of extremities did not reveal any edema. Peripheral pulses are felt. CHIEF [employer]PER[employer] LOCK TENDER exam did not reveal focal neurological deficits. O2 saturation is 98% on room air. ASSESSMENT: 1. Dizziness. 2. Abnormal EKG, rule out myocardial infarction. 3. Coronary artery disease, status post angioplasty. PLAN: I will obtain a D-dimer to rule out pulmonary embolism. I will check orthostatics. Obtain an echocardiogram to assess LV function and wall motion. Follow her troponin and decide on further course of action based on how the testing evolves. In the meantime, she will be treated with an aspirin. Start her on statins if the cholesterol comes back elevated. MMODL / IJN: [id number] /
[2019-11-20] MEDS: SODIUM CHLORIDE 0.9% 1,000 ML IV SCH (04:54)
[2019-11-20] MEDS ORDERED: ASPIRIN 81 MG PO SCH (09:00)
--- NOTE | 2019-11-20 09:16 | CT ---
EXAMINATION TYPE: CT chest wo con DATE OF EXAM: 11/20/2019 COMPARISON: Chest x-ray from yesterday HISTORY: Dizziness and weakness. CT DLP: 126.70 mGycm. Automated Exposure Control for Dose Reduction was Utilized. TECHNIQUE: CT scan of the thorax is performed without IV contrast. FINDINGS: LUNGS: [id number] biapical pleural/parenchymal scarring extending posteriorly is present. Suspi cious spiculated nodule superior aspect right lower lobe seen best on coronal image 56 measures 1.1 x 0.9 cm axial image 35. No suspicious focal consolidation or groundglass opacity bilaterally. No pleu ral effusion or pneumothorax seen bilaterally. MEDIASTINUM: Lack of IV contrast is noted to limit evaluation for mediastinal and especially hilar ad enopathy. There are no definitive greater than 1 cm hilar or mediastinal lymph nodes. No cardiomega ly or pericardial effusion is seen. Suspect coronary artery stent in the proximal LAD axial image 37, correlate clinically. Ascending aorta measures up to 3.6 cm in diameter axial image 31. OTHER: Mild to moderate multilevel spurring and disc space narrowing in the proximal to mid thoracic spine. Slight scoliotic curvature. IMPRESSION: No suspicious acute pulmonary process. There is however 1.1 x 0.9 cm suspicious spiculate d superior aspect right lower lobe nodule. Neoplasm cannot be excluded. Follow-up PET/CT advised.
[2019-11-20 09:24] LABS: Basophils % (A) 1 %; Eosinophils # (A) 0.1 k/uL (0-0.7); Eosinophils % (A) 3 %; HCT 38.4 % (34.0-46.0); HGB 12.2 gm/dL (11.4-16.0); Lymphocytes # (A) 1.3 k/uL (1.0-4.8); Lymphocytes % (A) 36 %; MCH 29.8 pg (25.0-35.0); MCHC 31.8 g/dL (31.0-37.0); MCV 93.8 fL (80.0-100.0); Monocytes # (A) 0.2 k/uL (0-1.0); Monocytes % (A) 5 %; Neutrophils # (A) 2.1 k/uL (1.3-7.7); Neutrophils % (A) 55 %; Platelet Count 118 k/uL (150-450); RDW 13.3 % (11.5-15.5); WBC 3.8 k/uL (3.8-10.6)
[2019-11-20 09:27] LABS: African American GFR (CKD) >90 (>60 ml/min/1.73 sqM); Anion Gap 4 mmol/L; Blood Urea Nitrogen 15 mg/dL (7-17); Calcium 8.5 mg/dL (8.4-10.2); Carbon Dioxide 26 mmol/L (22-30); Chloride 107 mmol/L (98-107); Glucose 90 mg/dL (74-99); Non-African American GFR(CKD) 86 (>60 ml/min/1.73 sqM); Potassium 4.4 mmol/L (3.5-5.1); Sodium 137 mmol/L (137-145)
[2019-11-20 09:47] VITALS: BP 103/63; PULSE 51; RESP 16; TEMP 97.5
[2019-11-20] MEDS ORDERED: ATORVASTATIN 40 MG TAB PO SCH (11:15)
--- NOTE | 2019-11-20 11:20 | P.CNNES ---
History of Present Illness Consult date: 11/20/19 Requesting physician: Geraldine Ortiz Reason for Consult: vertigo History of Present Illness: This is a 59-year-old right-handed woman with medical history of coronary artery disease s/p stent 2016 that presented to emergency department on 11/19/2019 for dizziness. She said for the last several days she has been feeling dizzy, as if the room is spining. The symptoms seems to be worse with head movement and when she stands the up but improves with rest. She denies of any ringing in the ear, any hearing loss. Denies any head trauma prior to the dizziness episodes. This past Monday she felt like her dizziness was really severe, she was at home around 9-9:30pm and in the evening the and her kitchen and the the she passed out for 10 seconds. Patient caught her and placed on the ground. She doesn't recall the episodes. Her notified her that she did not have any jerking of any of the extremities. She denies off any urinary or bowel incontinence. Denies any tongue bite or shortness of the tongue. She denies any previous episodes of passing out or seizures. There is no family history of seizures. She denies of any chest pain or palpitation prior to episode. She denies of any diaphoresis prior to the episode that. She did have nausea and vomiting episode after the passing out. And she did feel somewhat nauseous yesterday at. Currently she said that the she is been walking around and she feels her dizziness is under control. She denies any weakness, numbness, slurring of the speech or any double vision. Workup in the hospital consisted of: Initial vital signs was blood pressure of 119/83, heart rate of 55, respiratory of 18, temperature of 98.4 Fahrenheit oral, pulse ox is [address] of the head which was reported as no acute intracranial process. I did per sonally reviewed the image and I felt like the patient had mild atrophy of the bilateral frontal region. EKG was reported as normal sinus rhythm. Ventricular rate of 66. Possible left atrial enlargement. ST and T-wave abnormality consider an anterior ischemia. Chest CT was reported as suspicious spiculated superior aspect right lower lobe nodule. Neoplasm cannot be excluded. Review of Systems Review of system: The 12 point system was reviewed and apparent positive and negative per HPI. Past Medical History Past Medical History: Coronary Artery Disease (CAD), Chest Pain / Angina, Hyperlipidemia, Myocardial Infarction (SC) Additional Past Medical History / Comment(s): recent admission in May for abdominal pain per pt that radiated up into to chest, she thinks was from her carlyle, stress test/echo wnl per pt. Last Myocardial Infarction Date:: february 2016 History of Any Multi-Drug Resistant Organisms: None Reported Past Surgical History: Section, Heart Catheterization With Stent Additional Past Surgical History / Comment(s): cyst removal, LAD stent placement, June 2018 incisional hernia repair, Past Anesthesia/Blood Transfusion Reactions: No Reported Reaction Date of Last Stent Placement:: 02/22/2016 Past Psychological History: Anxiety, Depression Smoking Status: Current every day smoker Past Alcohol Use History: None Reported Additional Past Alcohol Use History / Comment(s): 1ppd 40 yrs. Past Drug Use History: None Reported - Past Family History Father Additional Family Medical History / Comment(s): DAD AT AGE 78, PATIENT WAS VERY YOUNG AT THAT TIME. HISTORY UNKNOWN. Mother Family Medical History: CVA/TIA, Myocardial Infarction (SC) Medications and Allergies Home Medications Medication Instructions Recorded Confirmed Type Aspirin 81 mg PO DAILY #30 chew 11/20/19 Rx Atorvastatin Calcium [Lipitor] 10 mg PO DAILY #30 tab 11/20/19 Rx Meclizine [Antivert] 12.5 mg PO TID #30 tab 11/20/19 Rx Allergies Allergy/AdvReac Type Severity Reaction Status Date / Time ampicillin Allergy Unknown Verified 11/19/19 15:16 Childhood Physical Examination - Vital Signs Vital Signs: Vital Signs Temp Pulse Pulse Pulse Pulse Pulse Resp 11/20/19 09:07 97.5 F L 41 L 51 L 51 L 16 11/20/19 09:00 41 L 51 L 51 L 16 11/20/19 03:50 97.8 F 56 L 55 L 47 L 18 11/19/19 23:30 56 L 55 L 54 L 11/19/19 22:15 98.1 F 53 L 17 11/19/19 19:45 98.4 F 61 20 11/19/19 17:02 55 L 18 11/19/19 15:45 58 L 16 11/19/19 15:05 11/19/19 13:13 98.4 F 70 16 BP BP BP BP Pulse Ox 11/20/19 09:07 118/74 119/77 103/63 97 11/20/19 09:00 11/20/19 03:50 102/66 102/66 101/64 95 11/19/19 23:30 102/67 102/66 99/59 11/19/19 22:15 95/58 96 11/19/19 19:45 103/63 96 11/19/19 17:02 119/83 98 11/19/19 15:45 134/79 99 11/19/19 15:05 101/60 106/67 104/65 11/19/19 13:13 132/80 99 Intake and Output 11/19/19 11/20/19 11/20/19 22:59 06:59 14:59 Other: Voiding Method Toilet Toilet Toilet # Voids 1 2 1 Weight 52.617 kg GENERAL: The patient is lying in bed and is not in acute distress. CHEST: The heart rate is regular rate rhythm. No murmurs to auscultation. No carotid bruit bilaterally. LUNG: Clear to auscultation bilaterally no wheezing noted throughout. Not labored breathing. ABDOMEN/GI: Bowel sounds present in all 4 quadrants. No tenderness to palpation throughout. NEUROLOGICAL: Higher mental function: The patient is awake, alert, oriented to self, place and time. Patient is following commands. No aphasia and no neglect. Cranial nerves: The pupils are round, equal and reactive to light and accommodation. Visual ramos are full to confrontation throughout. Extraocular movement is intact no nystagmus is noted. Facial sensation is normal to touch throughout. The facial strength is normal throughout. Hearing is normal bilaterally to hand rub. Tongue is midline and moved [id number] without any difficulty. No dysarthria is noted. Shoulder shrug is normal bilaterally. Motor: Gait is normal. The strength is 5 over 5 throughout. Normal tone and bulk. Cerebellum: Normal finger to nose heel to chin bilaterally. Sensation: Sensation is normal to touch throughout. Reflexes (right/left): 2+ throughout. Plantars are downgoing bilaterally. Results Lipid profile is a triglyceride of 186, cholesterol of 193, LDL 93, HDL 63. AST is 26, ALTs of 14. Coagulation study: PT is 9.8, INR 0.9, d-dimer of 5.41 Urine analysis was negative for urinary tract infection - Laboratory Findings CBC and BMP: 11/20/19 08:26 11/20/19 08:26 Abnormal Lab Findings: Abnormal Labs 11/19/19 11/19/19 11/19/19 13:51 13:51 18:53 Plt Count 133 L Sodium 136 L Glucose 112 H Triglycerides 186 H HDL Cholesterol 63 H 11/20/19 08:26 Plt Count 118 L Sodium Glucose Triglycerides HDL Cholesterol Assessment and Plan Assessment: Benign positional vertigo Syncope. Not seizure. suspicious spiculated superior aspect right lower lobe nodule. History of Coronary artery disease Plan: I ordered EEG. The patient refused. Notified the patient if she has a further episodes of passing out then the it is recommended for an EEG to be done. I will not start the patient on any antiepileptic drugs especially since I don't think this episode was a seizure. I think this was more of a syncopal episode from her severe dizziness. Pending 2-D echo Cardiac monitoring Orthostatic blood pressure with heart rate is ordered. Cardiology is on board Regarding the patient the benign positional vertigo the patient is on meclizine 12.5 mg 3 times a day when necessary. I will change it to a scheduled to make sure that the patient gets it. Regarding suspicious of spiculated superior aspect right lower lobe nodule we'll defer rest her workup to the primary team. Because the patient had an episode of loss of consciousness according to the [place] [facility] law she cannot drive for 6 month until no further episodes. She is to avoid the [place], heavy machinery and the swimming unassisted. Thank you for the consult. From a neurology perspective there is no further workup needed. We will sign off please reconsult if needed. Pablo Galicia M.D. Neuro-hospitalist Time with Patient: Greater than 30
--- NOTE | 2019-11-20 11:24 | P.PN ---
Subjective This is a pleasant 59-year-old female past medical history significant for coronary artery disease status post PCI of the mid LAD February 2016, dyslipidemia and chronic nicotine dependence. She follows in the office with Dr. Leger however her last visit was 2018. She is seen and examined sitting up in bed in no acute distress. She has no symptoms of chest pain, shortness of breath, dizziness or palpitations. Telemetry tracings reveal sinus bradycardia with heart rates as low as 45 while awake. She is asymptomatic. Supine blood pressure is 103/63 standing 118/74. Heart rates between 40 and 50. Asymptomatic. Laboratory data reviewed, d-dimer 0.41, WBC 3.8, hemoglobin 12.2, platelets 118, sodium 137, potassium 4.4, creatinine 0.77, cardiac enzymes negative 2, LDL [address] of the chest reveals 1.10.9 cm suspicious right lower lobe nodule, neoplasm cannot be excluded. GENERAL: Well-appearing, well-nourished and in no acute distress. NECK: Supple without JVD or thyromegaly. LUNGS: Breath sounds clear to auscultation bilaterally. Respiration equal and unlabored. No wheezes, rales or rhonchi. HEART: Regular rate and rhythm without murmurs, rubs or gallops. S1 and S2 heard. EXTREMITIES: Normal range of motion, no edema. No clubbing or cyanosis. Peripheral pulses intact. ASSESSMENT Dizziness suggestive of vertigo Syncope Abnormal EKG History of coronary artery disease status post PCI of the mid LAD 2016 Dyslipidemia Pulmonary nodule Chronic nicotine dependence PLAN Initiate atorvastatin 40 mg daily for target LDL of less than 70. Continue aspirin 81 mg daily. An acute coronary event has been ruled out. Echocardiogram has been obtained and will be reviewed. Ongoing neurologic evaluation. Follow up with Dr. Leger in the office when cleared by neuro for outpatient stress test. Nurse Practitioner note has been reviewed, I agree with a documented findings and plan of care. Patient was seen and examined. Objective - Vital Signs Vital signs: Vital Signs Temp 97.5 F L 11/20/19 09:07 Pulse 51 L 11/20/19 09:07 Resp 16 11/20/19 09:07 BP 103/63 11/20/19 09:07 Pulse Ox 97 11/20/19 09:07 Intake & Output 11/19/19 11/20/19 11/20/19 18:59 06:59 18:59 Weight 52.617 kg 52.617 kg Other: Voiding Method Toilet Toilet # Voids 2 1 - Labs CBC & Chem 7: 11/20/19 08:26 11/20/19 08:26 Labs: Abnormal Lab Results - Last 24 Hours (Table) 11/19/19 11/19/19 11/19/19 Range/Units 13:51 13:51 18:53 Plt Count 133 L (150-450) k/uL Sodium 136 L (137-145) mmol/L Glucose 112 H (74-99) mg/dL Triglycerides 186 H (<150) mg/dL HDL Cholesterol 63 H (40-60) mg/dL 11/20/19 Range/Units 08:26 Plt Count 118 L (150-450) k/uL Sodium (137-145) mmol/L Glucose (74-99) mg/dL Triglycerides (<150) mg/dL HDL Cholesterol (40-60) mg/dL
--- NOTE | 2019-11-20 11:54 | ECHOF ---
Referral Reason:per dr. vyas MEASUREMENTS -------- HEIGHT: 152.4 cm WEIGHT: 52.6 kg BP: 102/67 RVIDd: 2.6 cm (< 3.3) IVSd: 0.9 cm (0.6 - 1.1) LVIDd: 3.6 cm (3.9 - 5.3) LVPWd: 0.9 cm (0.6 - 1.1) IVSs: 1.2 cm LVIDs: 2.5 cm LVPWs: 1.4 cm LA Diam: 2.9 cm (2.7 - 3.8) LAESV Index (A-L): 20.95 ml/m Ao Diam: 3.1 cm (2.0 - 3.7) AV Cusp: 1.9 cm (1.5 - 2.6) MV EXCURSION: 15.879 mm (> 18.000) MV EF SLOPE: 110 mm/s (70 - 150) EPSS: 0.2 cm MV E Jh: 0.98 m/s MV DecT: 191 ms MV A Jh: 0.55 m/s MV E/A Ratio: 1.78 RAP: 5.00 mmHg RVSP: 27.65 mmHg FINDINGS -------- Sinus rhythm. This was a technically good study. The left ventricular size is normal. Left ventricular wall thickness is normal. Overall left vent ricular systolic function is normal with, an EF between 60 - 65 %. The right ventricle is normal in size. Normal LA size by volume 22+/-6 ml/m2. The right atrium is normal in size. Interatrial and interventricular septum intact. The aortic valve is trileaflet and appears structurally normal. The mitral valve is normal. Mild tricuspid regurgitation present. Right ventricular systolic pressure is normal at < 35 mmHg. Trace/mild (physiologic) pulmonic regurgitation. The aortic root size is normal. Normal inferior vena cava with normal inspiratory collapse consistent with estimated right atrial pre ssure of 5 mmHg. There is no pericardial effusion. CONCLUSIONS -------- 1. The left ventricular size is normal. 2. Left ventricular wall thickness is normal. 3. Overall left ventricular systolic function is normal with, an EF between 60 - 65 %. 4. Mild tricuspid regurgitation present. 5. Trace/mild (physiologic) pulmonic regurgitation. 6. There is no pericardial effusion. VACUUM COOKER OPERATOR: Anna Hardwick RDCS
[2019-11-20] MEDS ORDERED: MECLIZINE 12.5 MG TAB PO SCH (16:00)
--- NOTE | 2019-11-21 09:56 | DS ---
DISCHARGE SUMMARY FINAL DIAGNOSES: 1. Presyncope and dizziness, possible benign positional vertigo. 2. Possibly orthostatic hypotension or vasovagal syncope. 3. Mild thrombocytopenia. 4. Hyponatremia, mild. 5. History of CAD. 6. History of myocardial infarction. 7. History of LAD stent. 8. History of anxiety, depression. 9. Continued ongoing nicotine dependence. 10.Sinus bradycardia. DISCHARGE DISPOSITION: The patient will be discharged in a stable condition with guarded prognosis. HISTORY OF PRESENT ILLNESS: This is a 59-year-old woman with a past medical history of multiple medical problems being followed by Dr. Loco in the outpatient setting, admitted with history of syncope and as well as some dizziness. The multiple consultants saw the patient including Cardiology and as well as well as Neurology. Some bradycardia, otherwise minimal orthostatic hypotension also noted. The patient was treated symptomatically. Patient improved significantly. Recommend close followup with outpatient setting with Cardiology and as well as Neurology. On exam, vitals are stable. CARDIOVASCULAR: S1, S2. ABDOMEN: Soft. NERVOUS SYSTEM: No focal deficits. Cardiology has recommended Lipitor and aspirin. The patient might be a candidate for Holter monitoring. DISCHARGE ADVICE: 1. Diet is cardiac diet. 2. Follow up with Dr. Loco in 2-3 days. 3. Follow up with Dr. Leger in 1 week. 4. Follow up with Dr. Williamson in 1 week. MEDICATIONS: 1. Antivert 12.5 mg t.i.d. 2. Aspirin 81 mg p.o. daily. 3. Lipitor 10 mg p.o. daily. Once again, the patient will be discharged in a stable condition with guarded prognosis. MMODL / IJN: [id number] /
== END 2019-11-20 14:12 | disposition home or self-care (01) ==
LOC: EC 13:03 → 3NCARDOBS 15:13
PROVIDERS: ADMIT Internal Medicine; ATTEND Internal Medicine
DX: R55 Syncope and collapse (principal); H81.10 Benign paroxysmal vertigo, unspecified ear; D69.6 Thrombocytopenia, unspecified; E78.5 Hyperlipidemia, unspecified; E87.1 Hypo-osmolality and hyponatremia; F17.200 Nicotine dependence, unspecified, uncomplicated; I25.10 Atherosclerotic heart disease of native coronary artery without angina pectoris; I25.2 Old myocardial infarction; Z79.82 Long term (current) use of aspirin; Z79.899 Other long term (current) drug therapy; Z82.49 Family history of ischemic heart disease and other diseases of the circulatory system; Z95.5 Presence of coronary angioplasty implant and graft
CPT/HCPCS: 93005 ×2; 96361; 96374; 99285; 36415; 93306; 85379; 80061; 80053; 80048; 84484 ×2; 85025 ×2; 85610; 81003; 71046; 70450; 71250; G0378 ×2; J2405

== ENCOUNTER 2022-09-30 12:48 | Emergency (ER) | payer OTHER ==
[2022-09-30 14:17] LABS: Appearance,Urine Clear (Clear); Bilirubin,Urine Negative (Negative); Blood,Urine Negative (Negative); Color,Urine Colorless; Glucose,Urine (UA) Negative (Negative); Ketones,Urine Negative (Negative); Leukocyte Esterase,Urine Negative (Negative); Nitrite,Urine Negative (Negative); Protein,Urine Negative (Negative); Specific Gravity,Urine 1.002 (1.001-1.035); Urobilinogen,Urine <2.0 mg/dL (<2.0)
[2022-09-30 14:57] VITALS: RESP 18
[2022-09-30] MEDS ORDERED: KETOROLAC 15 MG/ML 1 ML VIAL IVP STA (15:30)
[2022-09-30 16:07] LABS: Basophils % (A) 1 %; Eosinophils # (A) 0.1 k/uL (0-0.7); Eosinophils % (A) 3 %; HGB 13.6 gm/dL (11.4-16.0); Lymphocytes # (A) 1.3 k/uL (1.0-4.8); Lymphocytes % (A) 27 %; MCHC 34.1 g/dL (31.0-37.0); MCV 88.2 fL (80.0-100.0); Mean Platelet Volume 7.8; Monocytes # (A) 0.2 k/uL (0-1.0); Monocytes % (A) 5 %; Neutrophils % (A) 64 %; Platelet Count 145 k/uL (150-450); RBC 4.54 m/uL (3.80-5.40); RDW 13.7 % (11.5-15.5); WBC 4.7 k/uL (3.8-10.6)
[2022-09-30 16:14] LABS: ALT 16 U/L (4-34); AST 26 U/L (14-36); African American GFR (CKD) >90 (>60 ml/min/1.73 sqM); Albumin 4.2 g/dL (3.5-5.0); Alkaline Phosphatase 77 U/L (38-126); Anion Gap 9 mmol/L; Bilirubin, Delta 0.2 mg/dL (0.0-0.2); Bilirubin,Unconjugated 0.4 mg/dL (0.0-1.1); Blood Urea Nitrogen 10 mg/dL (7-17); Calcium 9.5 mg/dL (8.4-10.2); Carbon Dioxide 23 mmol/L (22-30); Chloride 99 mmol/L (98-107); Glucose 89 mg/dL (74-99); Lipase 83 U/L (23-300); Non-African American GFR(CKD) >90 (>60 ml/min/1.73 sqM); Sodium 131 mmol/L (137-145); Total Bilirubin 0.6 mg/dL (0.2-1.3); Total Protein 7.5 g/dL (6.3-8.2)
--- NOTE | 2022-09-30 16:43 | US ---
EXAMINATION TYPE: US gallbladder DATE OF EXAM: 09/30/2022 COMPARISON: NONE CLINICAL INDICATION: Female, 61 years old with history of RUQ pain; upper back pain, pain when breath ing, smoker TECHNIQUE: Multiple sonographic images of the right upper quadrant are obtained. FINDINGS: EXAM MEASUREMENTS: Liver Length: 15.0 cm Gallbladder Wall: 0.2 cm CBD: 0.4 cm Right Kidney: 9.0 x 4.2 x 3.8 cm MIXER SLAGMAN NOTES:bowel gas limits Pancreas: wnl Liver: wnl Gallbladder: wnl Evidence for sonographic Cha's sign: no CBD: wnl Right Kidney: wnl IMPRESSION: No discrete abnormality seen.
--- NOTE | 2022-09-30 17:36 | ED ---
General Adult HPI - General Chief complaint: Recheck/Abnormal Lab/Rx Stated complaint: Back Pain Time Seen by Provider: 09/30/22 14:50 Source: patient, RN notes reviewed Mode of arrival: ambulatory Limitations: no limitations - History of Present Illness Initial comments: 61-year-old female with a past medical history significant for STEMI presents to the emergency department with a chief complaint of right upper back pain that radiates to the right upper quadrant. She reports that it has been a dull constant ache for the last couple weeks. Nothing made it worse or her to come in today. She reports that her family was concerned and want her to be evaluated. She denies any fever, chills, nausea, vomiting, melena, hematochezia, hematemesis, hematuria, flank pain.. She has not taken anything for his symptoms. - Related Data Previous Rx's Medication Instructions Recorded Aspirin 81 mg PO DAILY #30 chew 11/20/19 Atorvastatin Calcium [Lipitor] 10 mg PO DAILY #30 tab 11/20/19 Meclizine [Antivert] 12.5 mg PO TID #30 tab 11/20/19 Allergies Allergy/AdvReac Type Severity Reaction Status Date / Time ampicillin Allergy Unknown Verified 09/30/22 13:10 Childhood Review of Systems ROS Statement: Those systems with pertinent positive or pertinent negative responses have been documented in the HPI. ROS Other: All systems not noted in ROS Statement are negative. Past Medical History Past Medical History: Coronary Artery Disease (CAD), Chest Pain / Angina, Hyperlipidemia, Myocardial Infarction ([place]) Additional Past Medical History / Comment(s): recent admission in May for abdominal pain per pt that radiated up into to chest, she thinks was from hernia, stress test/echo wnl per pt. Last Myocardial Infarction Date:: february 2016 History of Any Multi-Drug Resistant Organisms: None Reported Past Surgical History: Section, Heart Catheterization With Stent Additional Past Surgical History / Comment(s): cyst removal, LAD stent placement, incisional hernia repair, Past Anesthesia/Blood Transfusion Reactions: No Reported Reaction Date of Last Stent Placement:: 02/22/2016 Past Psychological History: Anxiety, Depression Smoking Status: Current every day smoker Past Alcohol Use History: None Reported Past Drug Use History: Marijuana - Past Family History Father Additional Family Medical History / Comment(s): DAD AT AGE 78, PATIENT WAS VERY YOUNG AT THAT TIME. HISTORY UNKNOWN. Mother Family Medical History: CVA/TIA, Myocardial Infarction ([place]) General Exam - General Exam Comments Initial Comments: General: Alert, in no acute distress Head: atraumatic normocephalic. Eyes PERRL, EOMI intact, mucous membranes moist Respiratory: Lungs clear to auscultation bilaterally Cardiovascular: Heart rate regular rate and rhythm Abdominal: Soft without guarding or rebound, no CVA tenderness. No abdominal tenderness, Cha sign negative Extremities: Normal inspection with full range of motion and normal capillary refill Neuroogic: alert and oriented 3, CN II-XII intact, able to ambulate with steady gait Skin: warm dry and intact with normal color Limitations: no limitations Course Vital Signs 09/30/22 09/30/22 09/30/22 13:07 14:54 17:41 Temperature 98.4 F 98.0 F Pulse Rate 63 61 50 L Respiratory 20 18 18 Rate Blood Pressure 116/79 163/98 122/74 O2 Sat by Pulse 97 96 97 Oximetry EKG Findings - EKG Comments: EKG Findings:: I interpreted the following: EKG performed at 15:43 46 bpm and si nus bradycardia. TN interval 145, QRS duration 93, QT/QTc 453/411 incomplete right bundle-branch block Medical Decision Making - Medical Decision Making Was pt. sent in by a medical professional or institution ([facility], [employer], urgent care, hospital, or long term...) When possible be specific @ -[No] Did you speak to anyone other than the patient for history (EMS, parent, family, police, friend...)? What history was obtained from this source @ -[No] Did you review nursing and triage notes (agree or disagree)? Why? @ -[I reviewed and agree with nursing and triage notes] Were old charts reviewed (outside hosp., previous admission, EMS record, old EKG, old radiological studies, urgent care reports/EKG's, long term records)? Report findings @ -[No old charts were reviewed] Differential Diagnosis (chest pain, altered mental status, abdominal pain women, abdominal pain men, vaginal bleeding, weakness, fever, dyspnea, syncope, headache, dizziness, GI bleed, back pain, seizure, CVA, palpatations, mental health, musculoskeletal)? @ -[not applicable] EKG interpreted by me (3pts min.). @ -[As above] X-rays interpreted by me (1pt min.). @ -[None done] CT interpreted by me (1pt min.). @ -[None done] U/S interpreted by me (1pt. min.). @ -Ultrasound of the gallbladder is negative for any evidence of Jensen cystitis or cholelithiasis What testing was considered but not performed or refused? (CT, X-rays, U/S, labs)? Why? @ -[None] What meds were considered but not given or refused? Why? @ -[None] Did you discuss the management of the patient with other professionals (professionals i.e. Dr., PA, [employer], lab, RT, psych nurse, social worker school, coordinator of online programs, teacher, public records officer, case reviewer)? Give summary @ -[No] Was smoking cessation discussed for >3mins.? @ -[No] Was critical care preformed (if so, how long)? @ -[No] Were there social determinants of health that impacted care today? How? (Homelessness, low income, unemployed, alcoholism, drug addiction, transportation, low edu. Level, literacy, decrease access to med. care, nursing home, rehab)? @ -[No] Was there de-escalation of care discussed even if they declined (Discuss DNR or withdrawal of care, Hospice)? DNR status @ -[No] What co-morbidities impacted this encounter? (DM, HTN, Smoking, COPD, CAD, Cancer, CVA, ARF, Chemo, Hep., AIDS, mental health diagnosis, sleep apnea, morbid obesity)? @ -[None] Was patient admitted / discharged? Hospital course, mention meds given and route, prescriptions, significant lab abnormalities, going to OR and other pertinent info. @ -Discharged. This is a pleasant 61-year-old female who presents the emergency department with a chief complaint of back pain that radiates to the right upper quadrant. Patient had a thorough history and physical exam performed on the emergency department. Physical exam is essentially unremarkable. Patient symptomatically bradycardic. Lungs clear to auscultation bilaterally abdomen soft with mild tenderness. Patient had lab work and imaging performed which were essentially unremarkable. I discussed results in detail with the patient verbalized understanding all questions were addressed. She was given Toradol and 1 L of IV fluids with mild symptomatic relief. She is agreeable with the plan for discharge. All questions were addressed with recommended close follow-up with PCP in 1-2 days.. Patient discharged in stable condition. Case discussed with BRIAN Jiménez who agrees with plan of care Undiagnosed new problem with uncertain prognosis? @ -[No] Drug Therapy requiring intensive monitoring for toxicity (Heparin, Nitro, Insulin, Cardizem)? @ -[No] Were any procedures done? @ -[No] Diagnosis/symptom? @ -Back pain - RUQ pain Acute, or Chronic, or Acute on Chronic? @ -Acute Uncomplicated (without systemic symptoms) or Complicated (systemic symptoms)? @ -Uncomplicated Side effects of treatment? @ -[No] Exacerbation, Progression, or Severe Exacerbation? @ -[No] Poses a threat to life or bodily function? How? (Chest pain, [place], [place], pneumonia, PE, COPD, DKA, ARF, appy, cholecystitis, CVA, Diverticulitis, Homicidal, Suicidal, threat to staff... and all critical care pts) @ -Low likelihood - Lab Data Result diagrams: 09/30/22 15:40 09/30/22 15:40 Lab Results 09/30/22 09/30/22 09/30/22 Range/Units 14:10 15:40 15:40 WBC 4.7 (3.8-10.6) k/uL RBC 4.54 (3.80-5.40) m/uL Hgb 13.6 (11.4-16.0) gm/dL Hct 40.0 (34.0-46.0) % MCV 88.2 (80.0-100.0) fL MCH 30.0 (25.0-35.0) pg MCHC 34.1 (31.0-37.0) g/dL RDW 13.7 (11.5-15.5) % Plt Count 145 L (150-450) k/uL MPV 7.8 Neutrophils % 64 % Lymphocytes % 27 % Monocytes % 5 % Eosinophils % 3 % Basophils % 1 % Neutrophils # 3.0 (1.3-7.7) k/uL Lymphocytes # 1.3 (1.0-4.8) k/uL Monocytes # 0.2 (0-1.0) k/uL Eosinophils # 0.1 (0-0.7) k/uL Basophils # 0.0 (0-0.2) k/uL Sodium 131 L (137-145) mmol/L Potassium 4.0 (3.5-5.1) mmol/L Chloride 99 (98-107) mmol/L Carbon Dioxide 23 (22-30) mmol/L Anion Gap 9 mmol/L BUN 10 (7-17) mg/dL Creatinine 0.54 (0.52-1.04) mg/dL Est GFR (CKD-EPI)AfAm >90 (>60 ml/min/1.73 sqM) Est GFR (CKD-EPI)NonAf >90 (>60 ml/min/1.73 sqM) Glucose 89 (74-99) mg/dL Calcium 9.5 (8.4-10.2) mg/dL Total Bilirubin 0.6 (0.2-1.3) mg/dL Conjugated Bilirubin 0.0 (0.0-0.3) mg/dL Unconjugated Bilirubin 0.4 (0.0-1.1) mg/dL Delta Bilirubin 0.2 (0.0-0.2) mg/dL AST 26 (14-36) U/L ALT 16 (4-34) U/L Alkaline Phosphatase 77 (38-126) U/L Total Protein 7.5 (6.3-8.2) g/dL Albumin 4.2 (3.5-5.0) g/dL Lipase 83 (23-300) U/L Urine Color Colorless Urine Appearance Clear (Clear) Urine pH 6.0 (5.0-8.0) Ur Specific [place] 1.002 (1.001-1.035) Urine Protein Negative (Negative) Urine Glucose (UA) Negative (Negative) Urine Ketones Negative (Negative) Urine Blood Negative (Negative) Urine Nitrite Negative (Negative) Urine Bilirubin Negative (Negative) Urine Urobilinogen <2.0 (<2.0) mg/dL Ur Leukocyte Esterase Negative (Negative) Disposition Clinical Impression: Abdominal pain, RUQ pain Disposition: HOME SELF-CARE Condition: Stable Instructions (If sedation given, give patient instructions): Abdominal Pain (ED) Additional Instructions: Please return to the nearest emergency department if symptoms worsen or persist Is patient prescribed a controlled substance at d/c from ED?: No Referrals: None,Stated [Primary Care Provider] - 1-2 days Time of Disposition: 17:36
[2022-09-30 17:45] VITALS: BP 122/74; PULSE 50; TEMP 98
== END 2022-09-30 17:47 | disposition home or self-care (01) ==
LOC: EC 12:48
DX: R10.11 Right upper quadrant pain (principal); I25.10 Atherosclerotic heart disease of native coronary artery without angina pectoris; I25.2 Old myocardial infarction; F17.200 Nicotine dependence, unspecified, uncomplicated; F12.90 Cannabis use, unspecified, uncomplicated; Z88.0 Allergy status to penicillin; Z86.59 Personal history of other mental and behavioral disorders
CPT/HCPCS: 36415; 93005; 80053; 82248; 83690; 85025; 81003; 76705; 99284; 96374; J1885

== ENCOUNTER → 2022-11-25 | Outpatient (CLI) | payer OTHER ==
--- NOTE | 2022-11-25 12:45 | MR ---
EXAMINATION TYPE: MR brain wo/w con DATE OF EXAM: 11/25/2022 12:36 PM COMPARISON: NONE HISTORY: Lung cancer. CONTRAST: Patient received 4 mL intravenous Gadavist gadolinium contrast. Multiplanar and multispin-echo imaging of the brain was performed . Pre and post contrast enhanced i mages are obtained. The ventricles, basal cisterns and sulci overlying the cerebral convexities are mildly enlarged. There is evidence of mild periventricular white matter ischemic demyelination. Remote deep white matter insults are also noted. No acute edema is seen on diffusion weighted imaging. There is no evidence for midline shift or mass effect. Acute intracranial hemorrhage or extra-axial collection is not evident. No enhancing lesions are seen. The paranasal sinuses and mastoid air cells are well-aerated. IMPRESSION: Age-related atrophic and chronic small vessel ischemic change. No acute intracranial process at this time. No enhancing lesions are seen.
== END | disposition home or self-care (01) ==
LOC: RADMRIMAIN 11:30
PROVIDERS: ATTEND Internal Medicine Hematology & Oncology
DX: C34.80 Malignant neoplasm of overlapping sites of unspecified bronchus and lung (principal); G89.3 Neoplasm related pain (acute) (chronic); I25.2 Old myocardial infarction; I67.82 Cerebral ischemia; G31.1 Senile degeneration of brain, not elsewhere classified
CPT/HCPCS: 70553; A9585

== ENCOUNTER → 2022-12-16 | Outpatient (CLI) | payer OTHER ==
--- NOTE | 2022-12-16 15:12 | PE ---
EXAMINATION TYPE: PET CT fusion skull to thigh DATE OF EXAM: 12/16/2022 COMPARISON: Outside whole-body CT December 09, 2022 HISTORY: Solitary pulmonary nodule TECHNIQUE: Following the intravenous administration of 10.3 mCi of F-18 FDG, whole body images are p erformed from the skull base to the midthigh. Images are reviewed on the computer in the coronal, ax ial, and sagittal planes. Reconstructed rotating images are created on independent workstation and r eviewed on the computer. A localization and attenuation correction CT is performed in conjunction w ith the PET scan. Blood glucose level equals 101 SCAN: Initial Scan FINDINGS: SKULL BASE AND NECK: No areas of abnormal hypermetabolic uptake. CHEST, MEDIASTINUM, AND HILAR REGION: Mild emphysematous change in the upper lungs is redemonstrated. Persistent posterior right lower lobe mass measuring 4.5 x 3.1 cm axial image 98 has abnormal hyper metabolic uptake, max SUV is 9.72. There is adjacent hypermetabolic 1.6 x 1.2 cm pulmonary nodule ant eriorly. Max SUV is 8.98 on axial image 98. No additional areas of abnormal hypermetabolic uptake are present in the thorax. ABDOMEN AND PELVIS: No hypermetabolic adrenal masses. Normal excretion. Mild nonspecific bowel uptake in the right pelvis. No suspicious abnormal hypermetabolic uptake. OSSEOUS STRUCTURES: No areas of abnormal hypermetabolic uptake. OTHER CT: Suspect coronary artery stent in the proximal LAD. Mild to moderate calcified plaque of the aorta extends into branch vessels. Patient has little intra-abdominal fat. IMPRESSION: Hypermetabolic uptake in the suspicious posterior right lower lobe mass and adjacent pulm onary nodule. No abnormal thoracic adenopathy or evidence for metastatic disease.
== END | disposition home or self-care (01) ==
LOC: RADPETMAIN 10:45
PROVIDERS: ATTEND Internal Medicine Hematology & Oncology
DX: R91.1 Solitary pulmonary nodule (principal)
CPT/HCPCS: 78815; A9552

== ENCOUNTER → 2023-01-25 | Outpatient (CLI) | payer OTHER ==
[2023-01-25 15:11] LABS: INR 0.9 (<1.2); Prothrombin Time 10.4 sec (10.0-12.5)
[2023-01-25 15:12] LABS: Partial Thromboplastin Time 24.6 sec (22.0-30.0)
[2023-01-25 19:48] LABS: Blood Urea Nitrogen 8.8 mg/dL (9.0-27.0); Calcium 9.6 mg/dL (8.7-10.3); Carbon Dioxide 26.6 mmol/L (21.6-31.8); Chloride 93 mmol/L (96-109); Glucose 75 mg/dL (70-110); Potassium 4.6 mmol/L (3.5-5.5); Sodium 131 mmol/L (135-145)
[2023-01-25 21:01] LABS: HGB 12.6 g/dL (12.0-15.0); MCHC 33.2 g/dL (32.0-37.0); MCV 90.5 FL (80.0-97.0); Mean Platelet Volume 10.8 FL (9.5-12.2); NRBC Per 100 WBC 0 X 10*3/uL (0.00-0.01); Platelet Count 171 X 10*3/uL (140-440); RDW 13.7 % (11.5-14.5); WBC 4.62 X 10*3/uL (4.50-10.00)
== END | disposition home or self-care (01) ==
LOC: LABWHC1 12:36
PROVIDERS: ATTEND Surgery
DX: Z01.818 Encounter for other preprocedural examination (principal); R91.8 Other nonspecific abnormal finding of lung field; R91.1 Solitary pulmonary nodule; R94.31 Abnormal electrocardiogram [ECG] [EKG]
CPT/HCPCS: 36415; 80048; 85027; 85610; 85730; 93005